=== PATIENT | female | born 1945 | race Caucasian/White ===

== ENCOUNTER 2023-06-17 13:02 | Outpatient (AMB) | payer MEDICARE, OTHER, SELFPAY ==
[2023-06-17 13:04] VITALS: BP 132/70; PULSE 90; O2SAT 97; BMI 25.7
--- NOTE | 2023-06-17 13:04 | A.OFFPC_ITS ---
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 Intake Note: Patient is a new patient here to establish care Director Shopper Marketing Required: No Allergies Penicillins Allergy (Mild, Verified 06/17/23 13:20) Swelling Medication List - Last Reconciled 06/17/23 by Len Villanueva MD amlodipine 7.5 mg PO .QD atorvastatin 20 mg PO DAILY hydrochlorothiazide 25 mg PO DAILY multivitamin 1 tab PO DAILY trazodone 100 mg PO BEDTIME PRN Tobacco use date assessed: 06/17/23 Fall risk assessment: No Falls in past year Last assessed Fall Risk: 06/17/23 Dental Screening Dental Screen Date: 06/17/23 Did you have a dental visit in the last 12 months?: Yes Did you have a dental problem in the last 6 months where you did not have access to dental care?: No Was dental information given to patient?: Patient has 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 fall in the bathtub 3 weeks ago R flank pain PFSH Surgical History (Updated 06/17/23 @ 13:37 by Len Villanueva MD) Hx of LASIK Carpal tunnel syndrome on both sides Social History (Updated 06/17/23 @ 13:38 by Len Villanueva MD) Housing: House Alcohol intake: current Comment: glass of wine once a day Patient Tobacco Use Status: Never used Tobacco service: No Current occupational status: retired Cognitive needs: No Hearing needs: No Vision needs: No Questionnaire PHQ-9 Over the last 2 weeks, how often have you been bothered by any of the following problems? 1. Little interest or pleasure in doing things: not at all 2. Feeling down, depressed, or hopeless: not at all 3. Trouble falling or staying asleep, or sleeping too much: not at all 4. Feeling tired or having little energy: not at all 5. Poor appetite or overeating: not at all 6. Feeling bad about yourself - or that you are a failure or have let yourself or your family down: not at all 7. Trouble concentrating on things, such as reading the newspaper or watching television: not at all 8. Moving or speaking so slowly that other people could have noticed. Or the opposite - being so fidgety or restless that you have been moving around a lot more than usual: not at all 9. Thoughts that you would be better off or of hurting yourself in some way: not at all Total score: 0 Depression Screening Interpretation: Negative Depression Screening Done: Yes [id number] - PHQ-9 Billing: Yes Source: Developed by Drs. Alfie Gillespie, Maureen Light, Jack Ayon and colleagues, with an educational kirby from [employer]. Thrive Questionnaire Date Thrive assessed: 06/17/23 I am a: Patient What is your living situation today?: I have a steady place to live Within the past 12 months, did the food you bought not last and you didn't have the money to get more?: Never true Within the past 12 months, did you worry whether your food would run out before you got money to buy more?: Never true Do you have trouble paying for medicines?: No Do you have trouble getting transportation to medical appointments?: No Do you have trouble paying your heating and electricity bill?: No Do you have trouble taking care of your child, family member or friend?: No Do you have trouble with day-to-day activities such as bathing, preparing meals, shopping, managing finances, etc.?: No Are you currently unemployed and looking for a job?: No Are you interested in more education?: No Please select the resources that you would like help with: None Currently or been in a relationship where the following occur: no concerns reported THRIVE Score: 0 AUDIT C Alcohol Use Questionnaire (AUDIT-C) 1. How often do you have a drink containing alcohol?: 4 or more times a week (wine ) 2. How many drinks containing alcohol do you have on a typical day when you are drinking?: 1 or 2 3. How often do you have six or more drinks on one occasion?: Never Total Score: 4 RESHMA-7 AMB Questionnaire RESHMA-7 Date RESHMA - 7 assessed: 06/17/23 Feeling nervous, anxious, or on edge: 0 = Not at all Not being able to stop or control worryin = Not at all Worrying too much about different things: 0 = Not at all Trouble relaxin = Not at all Being so restless that it is hard to sit still: 0 = Not at all Becoming easily annoyed or irritable: 0 = Not at all Feeling afraid as if something awful might happen: 0 = Not at all Total RESHMA-7 score (0-4 normal; 5-9 mild; 10-14 moderate; 15-21 severe): 0 Source: Developed by Drs. Alfie Gillespie, Maureen Light, Jack Ayon and colleagues, with an educational kirby from [employer]. RESHMA-7 Assessment Billing RESHMA-7 Assessment Tool: RESHMA-7 Assessment 66759 Physical exam (Primary Care) Vital Signs: Last Vital Signs Pulse 90 06/17/23 13:04 BP 132/70 06/17/23 13:04 Pulse Ox 97 06/17/23 13:04 Oxygen Delivery Method Room Air 06/17/23 13:04 BMI result Body Mass Index 25.7 Tobacco/Smoking Status: Tobacco use Status Tobacco use date assessed 06/17/23 06/17/23 13:07 Patient Tobacco Use Status Never used Tobacco 06/17/23 13:24 PHQ-9: PHQ-9 Score PHQ-9: Total score 0 06/17/23 13:25 Depression Screening Interpretation: Negative Thrive Assessment: Date of Thrive Assessment Date Thrive assessed 06/17/23 06/17/23 13:07 Currently or been in a relationship where the following occur: no concerns reported Const General: alert; No acute distress Eyes Conjunctivae: conjunctivae normal Resp Auscultation: clear to auscultation bilaterally Cardio Rate: regular rate Rhythm: regular rhythm GI Inspection: Yes normal to inspection Extrem General: Yes normal to inspection and No edema Assessment and Plan Assessment & Plan (1) Hypertension: Code(s): I10 - Essential (primary) hypertension Qualifiers: Hypertension type: primary hypertension Qualified Code(s): I10 - Essential (primary) hypertension Plan: Continue with blood pressure medication. Decrease salt intake and exercise presently on amlodipine and hydrochlorothiazide (2) Hypercholesterolemia: Code(s): E78.00 - Pure hypercholesterolemia, unspecified Plan: Avoid fried foods, chicken skin, eggs, butter margarine, pastries and meat. Be it pork or beef they have a lot of cholesterol LDL goal of less than 130 and triglyceride of less than 150. On atorvastatin 20 mg once a day (3) CKD stage 3a, GFR 45-59 ml/min: Code(s): N18.31 - Chronic kidney disease, stage 3a Plan: keep well hydrated avoid NSAID (4) Colon cancer screening: Code(s): Z12.11 - Encounter for screening for malignant neoplasm of colon Plan: cologuard requested (5) Colonoscopy refused: Code(s): Z53.20 - Procedure and treatment not carried out because of patient's decision for unspecified reasons (6) Breast cancer screening by mammogram: Code(s): Z12.31 - Encounter for screening mammogram for malignant neoplasm of breast Plan: had abnormal mammogram- will need to get results (7) Insomnia: Code(s): G47.00 - Insomnia, unspecified Orders: Orders Complete Blood Count Auto Diff Today I10 - Essential (primary) hypertension Comprehensive Met. Panel Today I10 - Essential (primary) hypertension Thyroid Stimulating Hormone Today I10 - Essential (primary) hypertension Free T4 (Free Thyroxine) Today I10 - Essential (primary) hypertension Vitamin B12 and Folate Today I10 - Essential (primary) hypertension Lipid Panel Today E78.00 - Pure hypercholesterolemia, unspecified, I10 - Essential (primary) hypertension UA CC w/rflx Micro + Cult Today I10 - Essential (primary) hypertension, R30.0 - Dysuria Vitamin D 25-OH Total Today I10 - Essential (primary) hypertension Referrals Cologuard Test Z12.11 - Encounter for screening for malignant neoplasm of colon Medications: New 2 amlodipine 7.5 mg (1.5 x 5 mg) PO .QD 90 days 135 tabs 1RF I10 - Essential (primary) hypertension atorvastatin 20 mg PO DAILY 90 tabs 2RF E78.00 - Pure hypercholesterolemia, unspecified hydrochlorothiazide 25 mg PO DAILY 90 tabs 2RF I10 - Essential (primary) hypertension trazodone 100 mg (2 x 50 mg) PO BEDTIME PRN 180 tabs 0RF insomnia G47.00 - Insomnia, unspecified Coding Level of Care Code New Pt Level 4 (45796) Diagnoses Primary hypertension I10 Hypertension type: primary hypertension Hypercholesterolemia E78.00 CKD stage 3a, GFR 45-59 ml/min N18.31 Colon cancer screening Z12.11 Colonoscopy refused Z53.20 Breast cancer screening by mammogram Z12.31 Insomnia G47.00 Additional Codes RESHMA-7 Assessment Billing - RESHMA-7 Assessment Tool: RESHMA-7 Assessment [id number] ([id number])
== END 2023-06-17 16:06 | disposition home or self-care (01) ==
PROVIDERS: PCP Internal Medicine; Visit Provider Internal Medicine
DX: I12.9 Hypertensive chronic kidney disease with stage 1 through stage 4 chronic kidney disease, or unspecified chronic kidney disease (principal); N18.31 Chronic kidney disease, stage 3a; E78.00 Pure hypercholesterolemia, unspecified; G47.00 Insomnia, unspecified
CPT/HCPCS: 99204

== ENCOUNTER 2023-12-07 13:20 | Outpatient (AMB) | payer MEDICARE, OTHER, SELFPAY ==
--- NOTE | 2023-12-07 13:27 | A.OFFVIS_ITS ---
Intake Vital Signs 12/07/23 13:29 Height 4 ft 9.95 in Weight 119 lb BMI 24.9 BP 130/66 Blood Pressure Location Lt brachial Position Sitting Pulse 92 Pulse Source Pulse Oximeter Pulse Oximetry (%) 96 Oxygen Delivery Method Room Air Intake Visit Reasons: AWV initial Intake Note: Patient is here for an Annual Wellness Visit. Complaint of dry cough for a while. Pt decline flu shot today. 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 Patient Services Representative: Patient Services Representative Present and Patient Services Representative offered & declined Accompanied by: Spouse Allergies Penicillins Allergy (Mild, Verified 12/07/23 13:29) Swelling Medication List - Last Reconciled 12/07/23 by Len Villanueva MD amlodipine 7.5 mg (1.5 x 5 mg) PO .QD 90 days atorvastatin 20 mg PO DAILY hydrochlorothiazide 25 mg PO DAILY multivitamin 1 tab PO DAILY trazodone 100 mg (2 x 50 mg) PO BEDTIME PRN HPI AWV initial HPI Details 78-year-old female with a history of chr onic kidney disease hypertension hypercholesterolemia last seen in May 2023. Patient was advised to follow-up mammogram. Patient is here for annual well visit. Patient has declined colonoscopy last bone density was 07/11/2021. fall last year compla ining of low back pain- and still has pain. no LOC. no ER visit. dry cough 2 months, [facility] Medical History (Updated 12/07/23 @ 14:42 by Len Villanueva MD) Colon cancer screening Surgical History Hx of LASIK Carpal tunnel syndrome on both sides Social History Housing: House Alcohol intake: current Comment: glass of wine once a day Patient Tobacco Use Status: Never used Tobacco service: No Current occupational status: retired Cognitive needs: No Hearing needs: No Vision needs: No Questionnaire Medicare Wellness Checkup [age] What gender do you identify with?: female During the past 4 weeks, how much have you been bothered by emotional problems such as feeling anxious, depressed, irritable, sad or downhearted, and blue?: moderately During the past 4 weeks, has your physical & emotional health limited your social activities with family, friends, neighbors, or groups?: not at all During the past 4 weeks, how much bodily pain have you generally had?: moderate pain During the past 4 weeks, was someone available to help you if you needed & wanted help?: yes, as much as I wanted During the past 4 weeks, what was the hardest physical activity you could do for at least 2 minutes?: moderate Can you get to places out of walking distance without help? (For eg., can you travel alone on buses, taxis or drive your car?): Yes Can you go shopping for groceries or clothes without someone's help?: Yes Can you prepare your own meals?: Yes Can you do your housework without help?: Yes Because of any health problems, do you need the help of another person with your personal care needs such as eating, bathing, dressing or getting around the house?: No Can you handle your own money without help?: Yes During the past 4 weeks, how would you rate your health in general?: good During the past 4 weeks how have things been going for you?: pretty well Are you having difficulties driving your car?: no Do you always fasten your seat belt when you are in a car?: yes, usually During past 4 weeks, have you been bothered by the following: never: Falling or dizzy when standing up, Sexual problems?, Trouble eating well?, Teeth or denture problems?, Problems using the telephone? and Tiredness or fatigue? Have you fallen 2 or more times in the past year?: No Are you afraid of falling?: No Are you a smoker?: no During the past 4 weeks, how many drinks of wine, beer, or other alcoholic beverages did you have?: 2-5 drinks per week Do you exercise for about 20 minutes 3 or more times a week?: yes, most of the time Have you been given information to help with the following?: no: Hazards in your house that might hurt you? and no: Keeping track of your medications? How often do you have trouble taking medicines the way you have been told to take them?: sometimes I take medicine as prescribed How confident are you that you can control & manage most of your health problems?: somewhat confident What is your race?: White PHQ-9 Over the last 2 weeks, how often have you been bothered by any of the following problems? 1. Little interest or pleasure in doing things: not at all 2. Feeling down, depressed, or hopeless: not at all 3. Trouble falling or staying asleep, or sleeping too much: nearly every day 4. Feeling tired or having little energy: not at all 5. Poor appetite or overeating: not at all 6. Feeling bad about yourself - or that you are a failure or have let yourself or your family down: not at all 7. Trouble concentrating on things, such as reading the newspaper or watching television: not at all 8. Moving or speaking so slowly that other people could have noticed. Or the opposite - being so fidgety or restless that you have been moving around a lot more than usual: not at all 9. Thoughts that you would be better off or of hurting yourself in some way: not at all Total score: 3 Depression Screening Interpretation: Positive Depression Screening Done: Yes Source: Developed by Drs. Alfie Gillespie, Maureen Light, Jack Ayon and colleagues, with an educational kirby from [employer]. Thrive Questionnaire Date Thrive assessed: 06/17/23 RESHMA-7 AMB Questionnaire RESHMA-7 Date RESHMA - 7 assessed: 06/17/23 Source: Developed by Drs. Alfie Gillespie, Maureen Light, Jack Ayon and colleagues, with an educational kirby from [employer]. AUDIT C Alcohol Use Questionnaire (AUDIT-C) 2. How many drinks containing alcohol do you have on a typical day when you are drinking?: 1 or 2 3. How often do you have six or more drinks on one occasion?: Daily or almost daily Total Score: 4 Review of Systems Const Denies poor appetite and Denies weakness Eyes Denies no additional complaints ENT Reports Normal hearing present, Denies dizziness, Denies nasal congestion, Denies tinnitus and Denies sore throat Card Denies chest pain, Denies syncope, Denies rapid heart rate and Denies dyspnea Resp Denies cough and Denies dyspnea GI Denies change in stool character, Reports constipation, Denies diarrhea, Denies nausea and Denies vomiting Denies urinary frequency, Denies difficulty voiding and Denies dysuria Neuro Reports Normal hearing present, Denies confusion, Denies dizziness, Denies syncope and Denies weakness Psych Denies confusion Physical Exam Vital Signs: Last Vital Signs Pulse 92 12/07/23 13:29 BP 130/66 12/07/23 13:29 Pulse Ox 96 12/07/23 13:29 Oxygen Delivery Method Room Air 12/07/23 13:29 BMI result Body Mass Index 24.9 Const General: No confusion Orientation/consciousness: No confusion HEENT Other: Bilateral impacted cerumen Head: Yes normocephalic Ears: external ears normal Face and sinus: Yes normal facial exam Mouth: moist mucous membranes Throat: Yes tonsils normal Eyes Conjunctivae: conjunctivae normal Pupils: Equal, round and reactive pupils present and Pupil accommodation reflex normal Direct Ophthalmoscopy: normal light reflex Neck Neck: No lymphadenopathy Thyroid: Thyroid normal Chest Chest palpation & inspection: normal inspection of the chest Resp Effort & Inspection: normal respiratory effort and no audible wheezes Auscultation: clear to auscultation bilaterally, no crackles, no wheezes and lung sounds not diminished Cardio Rate: regular rate Rhythm: regular rhythm Peripheral pulses: radial pulses present and dorsalis pedis present GI Palpation (GI): no masses Auscultation: normal bowel sounds and normoactive bowel sounds Rectal Exam - Female: deferred Skin General skin exam: no rashes or lesions noted Rashes: no rashes Neuro General: No confusion Cranial nerves: Yes Equal, round and reactive pupils present and Yes Normal hearing present Cognition (Neuro): normal cognition Gait exam (Neuro): Normal gait present Motor exam (neuro): 5/5 motor strength present throughout Deep tendon reflexes (DTR's): Right brachioradialis reflex intensity grade: 2+, Left brachioradialis reflex intensity grade: 2+, Right patellar reflex intensity grade: 2+ and Left patellar reflex intensity grade: 2+ Extrem General: No edema Assessment & Plan Assessment & Plan (1) Medicare annual wellness visit, initial: Code(s): Z00.00 - Encounter for general adult medical examination without abnormal findings Plan: Patient is advised to eat healthy, keep well hydrated, keep active and have adequate sleep. (2) Hypertension: Code(s): I10 - Essential (primary) hypertension Qualifiers: Hypertension type: primary hypertension Qualified Code(s): I10 - Essential (primary) hypertension Plan: Continue with blood pressure medication. Decrease salt intake and exercise patient on amlodipine 7.5 mg once a day and hydrochlorothiazide 25 mg once a day. (3) Hypercholesterolemia: Code(s): E78.00 - Pure hypercholesterolemia, unspecified Plan: Avoid fried foods, chicken skin, eggs, butter margarine, pastries and meat. Be it pork or beef they have a lot of cholesterol LDL goal of less than 130 and triglyceride of less than 150 on atorvastatin 20 mg once a day (4) CKD stage 3a, GFR 45-59 ml/min: Code(s): N18.31 - Chronic kidney disease, stage 3a Plan: Keep well hydrated, avoid NSAIDs. (5) Breast cancer screening by mammogram: Code(s): Z12.31 - Encounter for screening mammogram for malignant neoplasm of breast Plan: Patient is reminded about mammogram (6) Osteopenia: Code(s): M85.80 - Other specified disorders of bone density and structure, unspecified site Plan: bone density requested (7) Low back pain: Comment: fall 2022 Code(s): M54.50 - Low back pain, unspecified Plan: spine xray requested (8) Dry cough: Code(s): R05.8 - Other specified cough Plan: increase oral fluids due > 1 month advised chest xray - trial of claritin for 2 weeks and see (9) Impacted cerumen of both ears: Code(s): H61.23 - Impacted cerumen, bilateral Plan: Patient will call if wants to have ear irrigation Orders: Orders XR DEXA axial skeleton Today M81.0 - Age-related osteoporosis without current pathological fracture, M85.80 - Other specified disorders of bone density and structure, unspecified site XR chest 2V Today R05.8 - Other specified cough XR lumbar spine 2-3V Today M54.50 - Low back pain, unspecified XR thoracic spine 2V Today M54.50 - Low back pain, unspecified Medications: Refilled trazodone 100 mg (2 x 50 mg) PO BEDTIME PRN 180 tabs 0RF insomnia G47.00 - Insomnia, unspecified hydrochlorothiazide 25 mg PO DAILY 90 tabs 2RF I10 - Essential (primary) hypertension amlodipine 7.5 mg (1.5 x 5 mg) PO .QD 135 tabs 2RF 90 days I10 - Essential (primary) hypertension atorvastatin 20 mg PO DAILY 90 tabs 2RF E78.00 - Pure hypercholesterolemia, unspecified Quality Reporting (2019) Depression/Bipolar (159/160/161/177) PHQ-9: Total score: 3 Coding Level of Care Code Medicare Subsequent (G0439) Diagnoses Medicare annual wellness visit, initial Z00.00 Primary hypertension I10 Hypertension type: primary hypertension Hypercholesterolemia E78.00 CKD stage 3a, GFR 45-59 ml/min N18.31 Breast cancer screening by mammogram Z12.31 Osteopenia M85.80 Low back pain M54.50 Dry cough R05.8 Impacted cerumen of both ears H61.23
[2023-12-07 13:29] VITALS: BP 130/66; PULSE 92; O2SAT 96; BMI 24.9
== END 2023-12-07 14:40 | disposition home or self-care (01) ==
PROVIDERS: PCP Internal Medicine; Visit Provider Internal Medicine
DX: Z00.00 Encounter for general adult medical examination without abnormal findings (principal); I12.9 Hypertensive chronic kidney disease with stage 1 through stage 4 chronic kidney disease, or unspecified chronic kidney disease; N18.31 Chronic kidney disease, stage 3a; E78.00 Pure hypercholesterolemia, unspecified; Z12.31 Encounter for screening mammogram for malignant neoplasm of breast; M85.80 Other specified disorders of bone density and structure, unspecified site; M54.50 Low back pain, unspecified; R05.8 Other specified cough; H61.23 Impacted cerumen, bilateral

== ENCOUNTER → 2023-12-07 13:20 | Outpatient (BNVA) | payer MEDICARE, OTHER, SELFPAY | PROVIDERS: PCP Internal Medicine; Visit Provider Internal Medicine ==

== ENCOUNTER 2024-01-14 08:57 | Outpatient (REF) | payer MEDICARE, OTHER, SELFPAY ==
--- NOTE | ~2024-01-14 | MM_ITS ---
EXAMINATION: BONE DENSITOMETRY CLINICAL INDICATION: Age-related osteoporosis without current pathological fracture. COMPARISON: This is the patient's baseline examination. TECHNIQUE: Using a [employer] DXA System (software version: 13.1) manufactured by [employer], dual-energy x-ray absorptiometry was performed of the lumbar spine and left hip. The images are of good technical quality. Summary results are attached. FINDINGS: LEFT FEMUR, NECK: BMD 0.773 g/cm2, Z-score 0.3, T-score -1.9, osteopenia. LEFT FEMUR, TOTAL: BMD 0.885 g/cm2, Z-score 1.1, T-score -1.0, normal. AP SPINE L1-L4: BMD 0.984 g/cm2, Z-score 0.5, T-score -1.6, osteopenia. IDENTIFIED RISK FACTORS: Menopause, height loss, history of fracture (adult), recurrent falls, renal. HISTORY OF FRACTURE: Other. MEDICATIONS: Calcium. MM/XR DEXA axial skeleton IMPRESSION: 1. DIAGNOSIS: Osteopenia based on the lowest T-score value of -1.9 in the femoral neck applying World Health Organization criteria. 2. 10-YEAR FRACTURE RISK PREDICTION, FRAX: Major osteoporotic fracture (clinical spine, forearm, hip or shoulder) 19.7%. Hip fracture 4.8%. 3. Treatment Recommendations: NOF guidelines recommend consideration for treatment in postmenopausal women and men age 50 and older presenting with the following: -A hip or vertebral (clinical or morphometric) fracture. -T-score less than or equal to -2.5 at the femoral neck or spine after appropriate evaluation to exclude secondary causes. -Low bone mass at the hip or spine and a 10-year fracture probability by FRAX of greater than or equal to 3% for hip fracture or greater than or equal to 20% for major osteoporotic fracture based on the [place] adapted WHO algorithm. 4. Other Recommendations: All treatment decisions require clinical judgment and consideration of individual patient factors, including patient preferences, comorbidities, previous drug use, risk factors not captured in the FRAX model (e.g. frailty, falls, vitamin D deficiency, increased bone turnover, interval significant decline in bone density) and possible under or overestimation of fracture risk by FRAX. Additional medical evaluation for secondary cause of low bone mineral density may be appropriate. FUTURE SCAN RECOMMENDATION: People with diagnosed cases of osteoporosis or at high risk for fracture should have regular bone mineral density tests. For patients eligible for Medicare, routine testing is allowed once every 2 years. The testing frequency can be increased to one year for patients who have rapidly progressing disease, those who are receiving or discontinuing medical therapy to restore bone mass, or have additional risk factors. Electronically signed by: Kat Prieto MD 01/14/2024 11:31 AM [facility]
== END 2024-01-14 08:58 | disposition home or self-care (01) ==
LOC: HO.MAMMO 08:57
PROVIDERS: PCP Internal Medicine; Visit Provider Internal Medicine
DX: M81.0 Age-related osteoporosis without current pathological fracture (principal); M85.80 Other specified disorders of bone density and structure, unspecified site
CPT/HCPCS: 77080

== ENCOUNTER 2024-02-14 08:04 | Outpatient (REF) | payer MEDICARE, OTHER, SELFPAY | END 2024-02-14 08:05 | disposition home or self-care (01) | LOC: HO.MAMMO 08:04 | PROVIDERS: PCP Internal Medicine; Visit Provider Internal Medicine | DX: Z12.31 Encounter for screening mammogram for malignant neoplasm of breast (principal) | CPT/HCPCS: 77063; 77067 ==

== ENCOUNTER → 2024-02-14 08:30 | Outpatient (BNV) | payer MEDICARE, OTHER, SELFPAY | PROVIDERS: PCP Internal Medicine; Visit Provider Internal Medicine | DX: Z12.31 Encounter for screening mammogram for malignant neoplasm of breast (principal) | CPT/HCPCS: 77063; 77067 ==

== ENCOUNTER 2024-03-17 09:34 | Outpatient (AMB) | payer MEDICARE, OTHER, SELFPAY ==
--- NOTE | 2024-03-17 09:53 | AM.OFFWIN_ITS ---
Intake Vital Signs 03/17/24 09:58 Weight 54.885 kg BP 122/80 Blood Pressure Location Rt brachial Position Sitting Pulse 97 Pulse Source Pulse Oximeter Pulse Oximetry (%) 97 Oxygen Delivery Method Room Air Intake Visit Reasons: EP Torn ear lobe- LT Intake Note: Patient here for torn ear lobe after a fall yesterday. Patient Tobacco Use Status: Never used Tobacco Allergies Penicillins Allergy (Mild, Verified 03/17/24 09:58) Swelling Do you need a note to return to daycare/school/sports/work: No HPI HPI Comments History of Present Illness Details 78 year old female presents w/ lac to le ft earlobe. Patient reports yesteday she tripped in her room and hit her left ear against the wall sustaining a lact to the left ear. She has been putting vasaline on it. Tetanus shot unclear she thinks she has it ( records are at home) she would like to check and if she needs it she will get it with her PCP. L ear lobe is not bleeding. No loc, dizziness, visual changes, fall to the groun, cp, sob PE pinna w/ laceration that appears to be self healing and crusted over with a scab Gave patient options of glue vs sutures ( with risks of poor healing) however she states she would rather not have either of these if possible and allow it to conitnue self healing. Other option I have her is to go to [facility] ed for evaluation and possible plastics input she doesnt care about the aethetics she says and would prefer self healing Plan- dc w/ topical atbx ointment. PFSH Medical History Colon cancer screening Surgical History Hx of LASIK Carpal tunnel syndrome on both sides Social History Housing: House Alcohol intake: current Comment: glass of wine once a day Patient Tobacco Use Status: Never used Tobacco service: No Current occupational status: retired Cognitive needs: No Hearing needs: No Vision needs: No Review of Systems Const All systems reviewed & are unremarkable except as noted in HPI and below Physical Exam Vital Signs: Last Vital Signs Pulse 97 03/17/24 09:58 BP 122/80 03/17/24 09:58 Pulse Ox 97 03/17/24 09:58 Oxygen Delivery Method Room Air 03/17/24 09:58 vss Appearance: Alert.? Oriented X3.? No acute cardiopulmonary distress distress.? Head: Normocephalic, no step-offs or deformities. + left ear with a through and through pinna lac that appears to be self healing. Neck: Normal inspection.? Neck supple.? CVS: Pulses normal.? Respiratory: No respiratory distress.? Skin: ? Normal skin color. Extremities: 5/5 strength to bilateral upper and lower extremities Neuro: Oriented X 3.? No motor deficit.? No sensory deficit. Assessment & Plan Assessment & Plan (1) Laceration of left earlobe: Code(s): S01.312A - Laceration without foreign body of left ear, initial encounter Plan Take your medications as prescribed. If you were prescribed antibiotics today, it is important that you take your medication to their entirety, do not skip any doses, do not finish them early. Follow-up with your primary care provider this week. Return to the emergency department with new or worsening symptoms. In case of emergency call 911 Medications: New bacitracin zinc (Antibiotic (bacitracin zinc)) 1 appl topical Q8H 14 grams 0RF Coding Level of Care Code Est Pt Level 3 (55022) Diagnoses Laceration of left earlobe S01.312A
[2024-03-17 09:58] VITALS: BP 122/80; PULSE 97; O2SAT 97
== END 2024-03-17 10:29 | disposition home or self-care (01) ==
PROVIDERS: PCP Internal Medicine; Visit Provider Physician Assistant
DX: S01.312A Laceration without foreign body of left ear, initial encounter (principal)

== ENCOUNTER → 2024-03-17 09:34 | Outpatient (BNVA) | payer MEDICARE, OTHER, SELFPAY | PROVIDERS: PCP Internal Medicine; Visit Provider Physician Assistant | DX: S01.312A Laceration without foreign body of left ear, initial encounter (principal); W01.0XXA Fall on same level from slipping, tripping and stumbling without subsequent striking against object, initial encounter; Y93.9 Activity, unspecified; Y92.003 Bedroom of unspecified non-institutional (private) residence as the place of occurrence of the external cause; Y99.9 Unspecified external cause status | CPT/HCPCS: 99212 ==

== ENCOUNTER → 2024-03-23 10:30 | Outpatient (BNV) | payer MEDICARE, OTHER, SELFPAY | PROVIDERS: PCP Internal Medicine; Visit Provider Internal Medicine | DX: N63.11 Unspecified lump in the right breast, upper outer quadrant (principal); R92.331 Mammographic heterogeneous density, right breast | CPT/HCPCS: 76642; 77065; G0279 ==

== ENCOUNTER 2024-03-28 08:09 | Outpatient (AMB) | payer MEDICARE, OTHER, SELFPAY ==
[2024-03-28 08:50] VITALS: BP 138/68; PULSE 102; O2SAT 98; BMI 24.7
--- NOTE | 2024-03-28 08:50 | MHC.PC.OV ---
Vital Signs 03/28/24 08:50 Height 4 ft 9.95 in Weight 118 lb BMI 24.7 BP 138/68 Blood Pressure Location Lt brachial Position Sitting Pulse 102 H Pulse Source Pulse Oximeter Pulse Oximetry (%) 98 Oxygen Delivery Method Room Air Intake Visit Reasons: cholesterol Intake Note: A little anxious as went into the hospital yesterday. Allergies Penicillins Allergy (Mild, Verified 03/28/24 08:50) Swelling Tobacco use date assessed: 03/28/24 Fall risk assessment: No Falls in past year Last assessed Fall Risk: 03/28/24 Dental Screening Dental Screen Date: 03/28/24 Did you have a dental visit in the last 12 months?: Yes Did you have a dental problem in the last 6 months where you did not have access to dental care?: No Was dental information given to patient?: Patient has dentist HPI cholesterol HPI Details The patient is a 78-year-old female presenting with a follow-up concerning abnormal mammogram findings. The patient underwent a mammogram on March 23, which revealed a solid, irregular mass in the right breast, prompting a recommendation for histology with an ultrasound-guided biopsy. There is no indication that the biopsy had been scheduled prior to this visit. The patient is noted to have long-standing hypertension and hypercholesterolemia, both of which she manages with medication. Additionally, she has chronic kidney disease. There was discussion of a rash present on part of her skin, thought potentially to be related to anxiety. The patient reports no significant discomfort from the rash. [facility] Medical History Colon cancer screening Surgical History Hx of LASIK Carpal tunnel syndrome on both sides Social History Housing: House Alcohol intake: current Comment: glass of wine once a day Patient Tobacco Use Status: Never used Tobacco Tobacco use type: Cigarette e-Cigarette/Vaping Use: Never Used Second Hand Smoke Exposure: No service: No Current occupational status: retired Cognitive needs: No Hearing needs: No Vision needs: Yes Questionnaire PHQ-9 Over the last 2 weeks, how often have you been bothered by any of the following problems? 1. Little interest or pleasure in doing things: not at all 2. Feeling down, depressed, or hopeless: not at all 3. Trouble falling or staying asleep, or sleeping too much: nearly every day 4. Feeling tired or having little energy: not at all 5. Poor appetite or overeating: not at all 6. Feeling bad about yourself - or that you are a failure or have let yourself or your family down: not at all 7. Trouble concentrating on things, such as reading the newspaper or watching television: not at all 8. Moving or speaking so slowly that other people could have noticed. Or the opposite - being so fidgety or restless that you have been moving around a lot more than usual: not at all 9. Thoughts that you would be better off or of hurting yourself in some way: not at all Total score: 3 Depression Screening Interpretation: Positive Depression Screening Done: Yes Source: Developed by Drs. Alfie Gillespie, Maureen Light, Jack Ayon and colleagues, with an educational kirby from [employer]. Thrive Questionnaire Date Thrive assessed: 03/28/24 I am a: Patient What is your living situation today?: I have a steady place to live Within the past 12 months, did the food you bought not last and you didn't have the money to get more?: Never true Within the past 12 months, did you worry whether your food would run out before you got money to buy more?: Never true Do you have trouble paying for medicines?: No Do you have trouble getting transportation to medical appointments?: No Do you have trouble paying your heating and electricity bill?: No Do you have trouble taking care of your child, family member or friend?: No Do you have trouble with day-to-day activities such as bathing, preparing meals, shopping, managing finances, etc.?: No Are you currently unemployed and looking for a job?: No Are you interested in more education?: No Currently or been in a relationship where the following occur: No concerns reported THRIVE Score: 0 AUDIT C Alcohol Use Questionnaire (AUDIT-C) 2. How many drinks containing alcohol do you have on a typical day when you are drinking?: 1 or 2 3. How often do you have six or more drinks on one occasion?: Daily or almost daily Total Score: 4 RESHMA-7 AMB Questionnaire RESHMA-7 Date RESHMA - 7 assessed: 03/28/24 Feeling nervous, anxious, or on edge: 1 = Several days Not being able to stop or control worryin = Several days Worrying too much about different things: 1 = Several days Trouble relaxin = Several days Being so restless that it is hard to sit still: 0 = Not at all Becoming easily annoyed or irritable: 0 = Not at all Feeling afraid as if something awful might happen: 1 = Several days Total RESHMA-7 score (0-4 normal; 5-9 mild; 10-14 moderate; 15-21 severe): 5 Source: Developed by Drs. Alfie Gillespie, Maureen Light, Jack Ayon and colleagues, with an educational kirby from [employer]. Physical exam (Primary Care) Vital Signs: Last Vital Signs Pulse 102 H 03/28/24 08:50 BP 138/68 03/28/24 08:50 Pulse Ox 98 03/28/24 08:50 Oxygen Delivery Method Room Air 03/28/24 08:50 BMI result Body Mass Index 24.7 Tobacco/Smoking Status: Tobacco use Status Tobacco use date assessed 03/28/24 03/28/24 08:56 Patient Tobacco Use Status Never used Tobacco 03/28/24 08:56 Tobacco use type Cigarette 03/28/24 08:56 e-Cigarette/Vaping Use Never Used 03/28/24 08:56 PHQ-9: PHQ-9 Score PHQ-9: Total score 3 03/28/24 08:56 Depression Screening Interpretation: Positive Thrive Assessment: Date of Thrive Assessment Date Thrive assessed 03/28/24 03/28/24 08:56 Currently or been in a relationship where the following occur: No concerns reported Const General: alert; No acute distress Eyes Conjunctivae: conjunctivae normal Resp Auscultation: clear to auscultation bilaterally Cardio Rate: regular rate Rhythm: regular rhythm GI Inspection: Yes normal to inspection Extrem General: Yes normal to inspection and No edema Coding Level of Care Code Est Pt Level 4 (29381) Complex EM visit Add On G2211 Diagnoses Breast asymmetry N64.89 Primary hypertension I10 Hypertension type: primary hypertension Hypercholesterolemia E78.00 CKD stage 3a, GFR 45-59 ml/min N18.31 Assessment & Plan Assessment & Plan (1) Breast asymmetry: Comment: Right 2022 Code(s): N64.89 - Other specified disorders of breast Category: Medical Plan: US guided needle biopsy advised (2) Hypertension: Code(s): I10 - Essential (primary) hypertension Category: Medical Qualifiers: Hypertension type: primary hypertension Qualified Code(s): I10 - Essential (primary) hypertension Plan: lab work not done yet (3) Hypercholesterolemia: Code(s): E78.00 - Pure hypercholesterolemia, unspecified Category: Medical Plan: lab work not done yet (4) CKD stage 3a, GFR 45-59 ml/min: Code(s): N18.31 - Chronic kidney disease, stage 3a Category: Medical Plan - For the abnormal mammogram findings, an urgent referral for an ultrasound-guided biopsy of the right breast mass was made to ascertain further histological diagnosis. - Continue current medication regimen for hypertension and hypercholesterolemia, ensuring adequate supply at the patient's pharmacy. - Discussed proper skin moisture management for the rash, including the recommendation to use thick lotions such as Aquaphor or CeraVe to prevent scratching. - Encourage routine preventative care; emphasized the importance of completing pending blood work with fasting for comprehensive assessment. - Advised on seasonal respiratory precautions, including potential use of masks during heightened flu and RSV activity periods, along with typical COVID-19 protective measures. Orders: Orders US breast ndl core biopsy RT Today N64.89 - Other specified disorders of breast
== END 2024-03-28 09:35 | disposition home or self-care (01) ==
PROVIDERS: PCP Internal Medicine; Visit Provider Internal Medicine
DX: N64.89 Other specified disorders of breast (principal); I10 Essential (primary) hypertension; E78.00 Pure hypercholesterolemia, unspecified; N18.31 Chronic kidney disease, stage 3a

== ENCOUNTER → 2024-03-28 08:09 | Outpatient (BNVA) | payer MEDICARE, OTHER, SELFPAY | PROVIDERS: PCP Internal Medicine; Visit Provider Internal Medicine | DX: N64.89 Other specified disorders of breast (principal); E78.00 Pure hypercholesterolemia, unspecified; I12.9 Hypertensive chronic kidney disease with stage 1 through stage 4 chronic kidney disease, or unspecified chronic kidney disease; N18.31 Chronic kidney disease, stage 3a | CPT/HCPCS: 99212 ==

== ENCOUNTER 2024-05-12 09:40 | Outpatient (AMB) | payer MEDICARE, OTHER, SELFPAY ==
--- NOTE | 2024-05-12 09:55 | MHC.OFFVIS ---
Vital Signs 05/12/24 10:04 Height 4 ft 9 in Weight 119 lb BMI 25.7 BP 178/83 H Blood Pressure Location Lt brachial Position Sitting Pulse 116 H Intake Visit Reasons: US guided BX (R) breast 9 o'clock mass Intake Note: Patient is seen in office for ultrasound biopsy CONSULT right breast 9 o'clock mass. Pt c/o: denies feeling any lump or concerns, no prior breast surgeries, infections, no fm hx of breast cancer, one child, no to breast feeding 05/17/24 School Based Therapist Required: No Registered Vascular Technologist (Rvt): Registered Vascular Technologist (Rvt) Present Accompanied by: Self / Same As Patient Allergies Penicillins Allergy (Mild, Verified 05/12/24 10:02) Swelling Medication List - Last Reconciled 05/12/24 by Guilherme Baugh MD amlodipine 7.5 mg (1.5 x 5 mg) PO .QD 90 days atorvastatin 20 mg PO DAILY bacitracin zinc (Antibiotic (bacitracin zinc)) 1 appl topical Q8H hydrochlorothiazide 25 mg PO DAILY multivitamin 1 tab PO DAILY trazodone 100 mg (2 x 50 mg) PO BEDTIME PRN HPI Comments Details: 78-year-old female patient presenting with a recent screening mammogram performed on 02/14/2024 with additional images obtained on 03/23/2024 including an ultrasound of the right breast which revealed a solid irregular mass in the right breast at the 9 o'clock position, 10 cm from the nipple measuring 2 x 3 x 3 mm. This was felt to be suspicious for malignancy (BI-RADS 4) and ultrasound-guided core biopsy recommended. She was scheduled for this biopsy at the [facility] on 05/17/2024. She denies a history of breast problems or breast surgery. She denies any current breast symptoms. Her family history is negative for breast or ovarian cancer. She is 1 para 1 and was 21 years old when she had her 1st child. Menarche was at the age of 13. She went through menopause in her late 50s. [facility] Medical History Colon cancer screening Surgical History Hx of LASIK Carpal tunnel syndrome on both sides Social History Housing: House Alcohol intake: current Comment: glass of wine once a day Patient Tobacco Use Status: Never used Tobacco Tobacco use type: Cigarette e-Cigarette/Vaping Use: Never Used Second Hand Smoke Exposure: No service: No Current occupational status: retired Cognitive needs: No Hearing needs: No Vision needs: Yes Female Reproductive History Menstrual Age of Menarche: 13 Age of menopause: 52 Total pregnancies: 1 Number of Living Children: 1 Review of Systems Const All systems reviewed & are unremarkable except as noted in HPI and below Denies chills, Denies fever(s), Denies headache(s), Denies poor appetite and Denies weakness ENT Denies headache(s) Card Denies chest pain, Denies irregular heart rhythm, Denies palpitations and Denies dyspnea Resp Denies cough, Denies excessive phlegm production and Denies dyspnea GI Denies abdominal pain, Denies bloating, Denies change in bowel habits, Denies constipation, Denies heartburn, Denies diarrhea, Denies nausea and Denies vomiting Denies urinary frequency Musc Denies back pain, Denies muscle weakness and Denies numbness Skin/Breast Denies changing lesions and Denies unusual bruising Neuro Denies headache(s), Denies numbness, Denies paresthesias and Denies weakness Psych Denies anxiety and Denies depression Endo Denies palpitations [place]/Lymph Denies lymphadenopathy Physical Exam Const General: cooperative and no acute distress Nutritional Appearance: well nourished Orientation/consciousness: patient oriented x3 Limitations: no limitations HEENT Head: Yes normocephalic and Yes atraumatic Ears: hearing grossly normal bilaterally Chest Other: Left breast: No skin change, no nipple retraction, no nipple discharge, no palpable mass, no enlarged lymph nodes. Right breast: No skin change, no nipple retraction, no nipple discharge, no palpable mass, no enlarged lymph nodes Resp Effort & Inspection: normal respiratory effort, no audible wheezes, no cough and no respiratory distress Cardio Jugular venous distension: no JVD GI Inspection: Yes normal to inspection Skin Other: Warm, dry, no rash Neuro General: patient oriented x3 Extrem General: Yes no clubbing, cyanosis or edema Results Reviewed Results Reviewed: Assessment & Plan Assessment & Plan (1) Abnormal mammogram: Code(s): R92.8 - Other abnormal and inconclusive findings on diagnostic imaging of breast Category: Medical (2) Abnormal ultrasound of breast: Code(s): R92.8 - Other abnormal and inconclusive findings on diagnostic imaging of breast Category: Medical Plan 78-year-old female patient presenting for evaluation of a abnormal mammogram and ultrasound of the right breast 09:00 o'clock, 10 cm from the nipple with a irregularly shaped density felt to be suspicious for malignancy. She was scheduled for an ultrasound-guided core biopsy at the [facility] on 05/17/2024. I reviewed the ultrasound findings with the patient. Examination today revealed no suspicious findings in either breast. I recommended she return approximately 1 week after the biopsy to review the pathology results and discuss treatment options. She expressed understanding and agrees with the plan. Orders: Orders US breast ndl core biopsy RT Today R92.8 - Other abnormal and inconclusive findings on diagnostic imaging of breast Coding Level of Care Code New Pt Level 4 (34258) Diagnoses Abnormal mammogram R92.8 Abnormal ultrasound of breast R92.8
[2024-05-12 10:04] VITALS: BP 178/83; PULSE 116; BMI 25.7
== END 2024-05-12 10:15 | disposition home or self-care (01) ==
LOC: HO.HGS 09:40
PROVIDERS: PCP Internal Medicine; Visit Provider Surgery
DX: R92.8 Other abnormal and inconclusive findings on diagnostic imaging of breast (principal)
CPT/HCPCS: 99204

== ENCOUNTER → 2024-05-12 09:40 | Outpatient (BNVA) | payer MEDICARE, OTHER, SELFPAY | PROVIDERS: PCP Internal Medicine; Visit Provider Surgery | DX: R92.8 Other abnormal and inconclusive findings on diagnostic imaging of breast (principal) | CPT/HCPCS: 99202 ==

== ENCOUNTER 2024-05-17 07:53 | Outpatient (REF) | payer MEDICARE, OTHER, SELFPAY ==
--- NOTE | ~2024-05-17 | MM_ITS ---
PROCEDURE: ULTRASOUND-GUIDED RIGHT BREAST BIOPSY CLINICAL INFORMATION: Mass at 9:00 10 cm from the nipple with distortion on mammography. COMPARISON: [facility] on PACS. TECHNIQUE: The details of the procedure, as well as the risks, benefits, and alternatives to the procedure were explained to the patient in detail and all of her questions were answered, after which, written informed consent was obtained. PROCEDURE: Prior to the procedure, sonography revealed a solid irregular mass at 9:00 10 cm from the nipple. A time-out was performed, the lesion intended for biopsy was targeted and the skin of the right breast was then prepped and draped in the usual sterile fashion. Using sonographic guidance, sterile technique, and 1% lidocaine without epinephrine for local anesthesia, a total of 7 cores were obtained through the targeted area with a 14-gauge biopsy device. At the completion of tissue sampling, a single butterfly metallic clip was deposited at the biopsy site. An appropriate sample was obtained. The postprocedure 2-view direct digital mammogram reveals satisfactory positioning of the biopsy clip. The patient tolerated the procedure well and, after assuring adequate hemostasis, was discharged in good condition after reviewing postbiopsy breast care instructions. Final pathology results are pending. MM/MM tomosynthesis diagnostic RT IMPRESSION: 1. Uncomplicated sonographically-guided core biopsy of the right breast. The 2-view direct digital postprocedure mammogram reveals satisfactory positioning of the biopsy clip. 2. Final pathology results are pending. A separate report with final recommendations will be issued once these results are made available. Electronically signed by: Iliana Hardy DO 05/17/2024 10:50 AM EDT
[2024-05-17] MEDS: Sodium Bicarbonate 8.4% 50 MEQ/50 ML VIAL SUBCUT (09:01)
[2024-05-17] MEDS: Lidocaine HCl 1 % 20 ML VIAL 14 ML SUBCUT (09:03)
== END 2024-05-17 07:54 | disposition home or self-care (01) ==
LOC: HO.MAMMO 07:53
PROVIDERS: Pathology Cytopathology; PCP Internal Medicine; Visit Provider Surgery
DX: C50.811 Malignant neoplasm of overlapping sites of right female breast (principal); Z17.0 Estrogen receptor positive status [ER+]
CPT/HCPCS: 19083; 77061; 77065; 88305; 88341; 88342; 88360; 88374; A4648; J2003

== ENCOUNTER → 2024-05-17 08:00 | Outpatient (BNV) | payer MEDICARE, OTHER, SELFPAY | PROVIDERS: PCP Internal Medicine; Visit Provider Internal Medicine | DX: N63.15 Unspecified lump in the right breast, overlapping quadrants (principal) | CPT/HCPCS: 19083; 77065 ==

== ENCOUNTER 2024-05-22 08:59 | Outpatient (AMB) | payer MEDICARE, OTHER, SELFPAY ==
[2024-05-22 09:00] VITALS: BP 132/64; PULSE 113; TEMP 36.2; O2SAT 98; BMI 26.0
--- NOTE | 2024-05-22 09:00 | A.OFFPC_ITS ---
Vital Signs 05/22/24 09:00 Height 4 ft 9 in Weight 120 lb 4 oz BMI 26.0 BP 132/64 Blood Pressure Location Lt brachial Position Sitting Pulse 113 H Pulse Source Pulse Oximeter Temp 97.1 F Temp Source Temporal Artery Scan Pulse Oximetry (%) 98 Oxygen Delivery Method Room Air Intake Visit Reasons: Right breast cancer FU Allergies Penicillins Allergy (Mild, Verified 05/22/24 09:04) Swelling Tobacco use date assessed: 05/22/24 Fall risk assessment: No Falls in past year Last assessed Fall Risk: 03/28/24 Dental Screening Dental Screen Date: 03/28/24 Did you have a dental visit in the last 12 months?: Yes Did you have a dental problem in the last 6 months where you did not have access to dental care?: No Was dental information given to patient?: Patient has dentist [facility] Medical History Breast asymmetry Abnormal ultrasound of breast Abnormal mammogram Colon cancer screening Surgical History Hx of LASIK Carpal tunnel syndrome on both sides Social History Housing: House Alcohol intake: current Comment: glass of wine once a day Patient Tobacco Use Status: Never used Tobacco e-Cigarette/Vaping Use: Never Used Second Hand Smoke Exposure: No service: No Current occupational status: retired Cognitive needs: No Hearing needs: No Vision needs: Yes Female Reproductive History Menstrual Age of Menarche: 13 Questionnaire PHQ-9 Over the last 2 weeks, how often have you been bothered by any of the following problems? 1. Little interest or pleasure in doing things: not at all 2. Feeling down, depressed, or hopeless: not at all 3. Trouble falling or staying asleep, or sleeping too much: nearly every day 4. Feeling tired or having little energy: not at all 5. Poor appetite or overeating: not at all 6. Feeling bad about yourself - or that you are a failure or have let yourself or your family down: not at all 7. Trouble concentrating on things, such as reading the newspaper or watching television: not at all 8. Moving or speaking so slowly that other people could have noticed. Or the opposite - being so fidgety or restless that you have been moving around a lot more than usual: not at all 9. Thoughts that you would be better off or of hurting yourself in some way: not at all Total score: 3 Depression Screening Interpretation: Positive Depression Screening Done: Yes Source: Developed by Drs. Alfie Gillespie, Maureen Light, Jack Ayon and colleagues, with an educational kirby from [employer]. Thrive Questionnaire Date Thrive assessed: 03/28/24 I am a: Patient What is your living situation today?: I have a steady place to live Within the past 12 months, did the food you bought not last and you didn't have the money to get more?: Never true Within the past 12 months, did you worry whether your food would run out before you got money to buy more?: Never true Do you have trouble paying for medicines?: No Do you have trouble getting transportation to medical appointments?: No Do you have trouble paying your heating and electricity bill?: No Do you have trouble taking care of your child, family member or friend?: No Do you have trouble with day-to-day activities such as bathing, preparing meals, shopping, managing finances, etc.?: No Are you currently unemployed and looking for a job?: No Are you interested in more education?: No Currently or been in a relationship where the following occur: No concerns reported THRIVE Score: 0 AUDIT C Alcohol Use Questionnaire (AUDIT-C) 2. How many drinks containing alcohol do you have on a typical day when you are drinking?: 1 or 2 3. How often do you have six or more drinks on one occasion?: Daily or almost daily Total Score: 4 RESHMA-7 AMB Questionnaire RESHMA-7 Date RESHMA - 7 assessed: 03/28/24 Feeling nervous, anxious, or on edge: 1 = Several days Not being able to stop or control worryin = Several days Worrying too much about different things: 1 = Several days Trouble relaxin = Several days Being so restless that it is hard to sit still: 0 = Not at all Becoming easily annoyed or irritable: 0 = Not at all Feeling afraid as if something awful might happen: 1 = Several days Total RESHMA-7 score (0-4 normal; 5-9 mild; 10-14 moderate; 15-21 severe): 5 Source: Developed by Drs. Alfie Gillespie, Maureen Light, Jack Ayon and colleagues, with an educational kirby from [employer]. Physical exam (Primary Care) Vital Signs: Last Vital Signs Temp 97.1 F 05/22/24 09:00 Pulse 113 H 05/22/24 09:00 BP 132/64 05/22/24 09:00 Pulse Ox 98 05/22/24 09:00 Oxygen Delivery Method Room Air 05/22/24 09:00 BMI result Body Mass Index 26.0 Tobacco/Smoking Status: Tobacco use Status Tobacco use date assessed 05/22/24 05/22/24 09:05 Patient Tobacco Use Status Never used Tobacco 05/22/24 09:05 Tobacco use type 05/22/24 09:05 e-Cigarette/Vaping Use Never Used 05/22/24 09:05 PHQ-9: PHQ-9 Score PHQ-9: Total score 3 05/22/24 09:05 Depression Screening Interpretation: Positive Thrive Assessment: Date of Thrive Assessment Date Thrive assessed 03/28/24 05/22/24 09:05 Currently or been in a relationship where the following occur: No concerns reported Const General: alert; No acute distress Eyes Conjunctivae: conjunctivae normal Resp Auscultation: clear to auscultation bilaterally Cardio Rate: regular rate Rhythm: regular rhythm GI Inspection: Yes normal to inspection Extrem General: Yes normal to inspection and No edema Coding Level of Care Code Est Pt Level 3 (48322) Diagnoses Breast cancer, right breast C50.911 Assessment & Plan Assessment & Plan (1) Breast cancer, right breast: Comment: April 2024Invasive ductal carcinoma, MSBR grade 1, with cribriform features Code(s): C50.911 - Malignant neoplasm of unspecified site of right female breast Category: Medical Plan History of Present Illness The patient is a 78-year-old female presenting with concerns related to a recent diagnosis of right breast cancer. She has underlying chronic conditions, including hypertension, hypercholesterolemia, and chronic kidney disease. A biopsy was performed, establishing the presence of invasive ductal carcinoma, grade 1, situated in the right breast with no signs of metastasis at this point. There will be a surgical consultation to evaluate . Coordination with hematology and oncology is underway to further assess the nature of the cancer and plan for chemotherapy based on additional tests. The patient is managing the diagnosis situation well but expresses concern about possible pain from procedures. Health Maintenance - Blood work including fasting labs requested but remains incomplete. - Follow-up with surgeon scheduled for further evaluation and treatment planning for breast cancer. - Oncology and hematology referrals initiated for comprehensive cancer management. Social History Review of Systems Physical Exam Results - Tests and Diagnostics: Ultrasound-guided biopsy showing invasive ductal carcinoma, grade 1, of the right breast. Plan Addressing the newly diagnosed invasive ductal carcinoma of the right breast is the primary focus. An appointment with a breast surgeon has been secured to evaluate . The outcome depends on additional tumor assessments. Referral to hematology and oncology is underway to determine the best course of treatment, including potential chemotherapy based on receptor assessments. The coordination of care pathways is neely to ensure timely treatment, with follow-up care integrated to manage her chronic illnesses alongside cancer treatment. Patient was informed and verbally consented to the use of an ambient scribe for clinic note documentation during this visit. Discussion Notes I discussed with the patient the diagnosis of invasive ductal carcinoma grade 1 in the right breast, options being considered and will be further examined during her upcoming surgical consultation. Alternatives, risks, and potential outcomes were briefly outlined. Referrals were made to hematology and oncology to conduct additional receptor testing which will guide chemotherapy decisions. The patient voiced concerns about pain and expressed a desire for quick scheduling, which I ensured by marking her referral as urgent. We also discussed the correlation between her current chronic conditions and cancer treatment planning to ensure holistic care. Patient Instructions - Attend the scheduled appointment with the surgeon for consultation . - Complete the fasting blood work as soon as possible. - Prepare for additional testing and follow-up with hematology and oncology for further cancer evaluation and planning. - Maintain current medication regimen for hypertension, hypercholesterolemia, and chronic kidney disease as directed. - Monitor for any new symptoms or changes and report them immediately. Orders: Referrals Hematology & Oncology Referral C50.911 - Malignant neoplasm of unspecified site of right female breast
== END 2024-05-22 09:18 | disposition home or self-care (01) ==
LOC: HO.HMCH 08:59
PROVIDERS: PCP Internal Medicine; Visit Provider Internal Medicine
DX: C50.911 Malignant neoplasm of unspecified site of right female breast (principal)

== ENCOUNTER → 2024-05-22 08:59 | Outpatient (BNVA) | payer MEDICARE, OTHER, SELFPAY | PROVIDERS: PCP Internal Medicine; Visit Provider Internal Medicine | DX: C50.911 Malignant neoplasm of unspecified site of right female breast (principal); E78.00 Pure hypercholesterolemia, unspecified; I12.9 Hypertensive chronic kidney disease with stage 1 through stage 4 chronic kidney disease, or unspecified chronic kidney disease; N18.9 Chronic kidney disease, unspecified | CPT/HCPCS: 99212 ==

== ENCOUNTER 2024-05-22 09:23 | Outpatient (REF) | payer MEDICARE, OTHER, SELFPAY ==
[2024-05-22 11:02] LABS: MANUAL DIFF FLAG NO
[2024-05-22 11:17] LABS: Basophils Percent Auto 0.3 % (0-2); Eosinophils Percent Auto 0.4 % (0-4); Hematocrit 40.8 % (37.0-47.0); Hemoglobin 14.3 g/dl (12.0-16.0); Imm Gran Abs Auto 0.02 X10*3/uL (0.00-0.03); Imm Gran Pct Auto 0.2 % (0.0-0.4); Lymphocytes Absolute Auto 1.3 X10*3/uL (1.2-4.9); Lymphocytes Percent Auto 14.1 % (20-40); Mean Corpuscular Hemoglobin 32.3 pg (27.0-33.0); Mean Corpuscular Volume 92.1 fL (80.0-98.0); Mean Platelet Volume 10.6 fL (9.4-12.3); Monocytes Absolute Auto 0.6 X10*3/uL (0.1-1.2); Monocytes Percent Auto 6.5 % (2-11); Neutrophils Absolute Auto 7.3 x10*3/uL (2.0-8.3); Neutrophils Percent Auto 78.5 % (45-73); Platelet Count 204 X10*3/uL (160-400); Red Blood Count 4.43 X10*6/uL (4.20-5.50); Red Cell Distribution Width 11.7 % (11.0-16.0); White Blood Count 9.4 X10*3/uL (4.8-10.8)
[2024-05-22 11:45] LABS: Alanine Aminotransferase 31 U/L (0-31); Albumin Level 4.9 g/dL (3.5-5.0); Alkaline Phosphatase 70 U/L (39-117); Anion Gap 17 (12-20); Aspartate Amino Transferase 35 U/L (5-31); Bilirubin Total 0.9 mg/dL (0.0-1.0); Blood Urea Nitrogen 10 mg/dL (9-16); Calcium 9.5 mg/dL (8.4-10.2); Carbon Dioxide 25 mmol/L (22-29); Chloride 101 mmol/L (96-108); Cholesterol 239 mg/dL (<200); Estimated Glomerular Filt Rate 49; Glucose Random 137 mg/dL (60-115); HDL Cholesterol 86 mg/dL (>40); LDL Cholesterol Calculated 123 mg/dL (<100); Potassium 3.2 mmol/L (3.3-5.1); Sodium 140 mmol/L (135-145); Total Protein 8.1 g/dL (6.5-8.0); Triglycerides 152 mg/dL (<150)
[2024-05-22 11:47] LABS: Free T4 (Free Thyroxine) 1.16 ng/dL (0.71-1.85); Thyroid Stimulating Hormone 0.71 uIU/mL (0.32-4.0); Vitamin D 25-OH Total 52.1 ng/mL (>30)
[2024-05-22 11:59] LABS: Folate 13.8 ng/mL (> or = 4.0); Vitamin B12 344 pg/mL (200-900)
== END 2024-05-22 09:24 | disposition home or self-care (01) ==
LOC: HO.10HDL 09:23
PROVIDERS: Visit Provider Internal Medicine
DX: C50.911 Malignant neoplasm of unspecified site of right female breast (principal); E78.00 Pure hypercholesterolemia, unspecified; I12.9 Hypertensive chronic kidney disease with stage 1 through stage 4 chronic kidney disease, or unspecified chronic kidney disease; N18.9 Chronic kidney disease, unspecified
CPT/HCPCS: 36415; 80053; 80061; 82306; 82607; 82746; 84439; 84443; 85025; 96127; 99212

== ENCOUNTER 2024-05-23 10:09 | Outpatient (AMB) | payer MEDICARE, OTHER, SELFPAY ==
--- NOTE | 2024-05-23 10:23 | MHC.OFFVIS ---
Vital Signs 05/23/24 10:35 Height 4 ft 9 in Weight 119 lb 0.794 oz BMI 25.8 Intake Visit Reasons: US guided BX (R) breast 9 o'clock mass RESULTS Intake Note: Patient is seen in office for ultrasound biopsy RESULTS right breast 9 o'clock mass. Pt c/o: here to discuss next steps, already seen results Hog Scraper Required: No Accompanied by: Spouse Allergies Penicillins Allergy (Mild, Verified 05/23/24 10:35) Swelling Medication List - Last Reconciled 05/23/24 by Guilherme Baugh MD amlodipine 7.5 mg (1.5 x 5 mg) PO .QD 90 days atorvastatin 20 mg PO DAILY bacitracin zinc (Antibiotic (bacitracin zinc)) 1 appl topical Q8H hydrochlorothiazide 25 mg PO DAILY multivitamin 1 tab PO DAILY potassium chloride ER (Klor-Con M) 10 mEq orally BID x 3 days then once a day; 30 days trazodone 100 mg (2 x 50 mg) PO BEDTIME PRN HPI Comments Details: 78-year-old female patient presenting with a screening mammogram performed on 02/14/2024 with additional images obtained on 03/23/2024 including an ultrasound of the right breast which revealed a solid irregular mass in the right breast at the 9 o'clock position, 10 cm from the nipple measuring 2 x 3 x 3 mm. This was felt to be suspicious for malignancy (BI-RADS 4) and ultrasound-guided core biopsy recommended. She underwent this procedure at the [facility] on 05/17/2024. She denies a history of breast problems or breast surgery. She denies any current breast symptoms. Her family history is negative for breast or ovarian cancer. She is 1 para 1 and was 21 years old when she had her 1st child. Menarche was at the age of 13. She went through menopause in her late 50s. She returns today to review the pathology results of the ultrasound-guided core biopsy. Pathology revealed an invasive ductal carcinoma, grade 1, ER/GA positive, HER2 Justin negative, Ki-67 low. She tolerated the procedure well and denies any ongoing symptoms. [facility] Medical History Breast asymmetry Abnormal ultrasound of breast Abnormal mammogram Colon cancer screening Surgical History Hx of LASIK Carpal tunnel syndrome on both sides Social History Housing: House Alcohol intake: current Comment: glass of wine once a day Patient Tobacco Use Status: Never used Tobacco e-Cigarette/Vaping Use: Never Used Second Hand Smoke Exposure: No service: No Current occupational status: retired Cognitive needs: No Hearing needs: No Vision needs: Yes Female Reproductive History Menstrual Age of Menarche: 13 Review of Systems Const All systems reviewed & are unremarkable except as noted in HPI and below Denies chills, Denies fever(s), Denies headache(s), Denies poor appetite and Denies weakness ENT Denies headache(s) Card Denies chest pain, Denies irregular heart rhythm, Denies palpitations and Denies dyspnea Resp Denies cough, Denies excessive phlegm production and Denies dyspnea GI Denies abdominal pain, Denies bloating, Denies change in bowel habits, Denies constipation, Denies heartburn, Denies diarrhea, Denies nausea and Denies vomiting Denies urinary frequency Musc Denies back pain, Denies muscle weakness and Denies numbness Skin/Breast Denies changing lesions and Denies unusual bruising Neuro Denies headache(s), Denies numbness, Denies paresthesias and Denies weakness Psych Denies anxiety and Denies depression Endo Denies palpitations [place]/Lymph Denies lymphadenopathy Physical Exam Vital Signs: BMI result Body Mass Index 25.8 Const General: cooperative and no acute distress Nutritional Appearance: well nourished Orientation/consciousness: patient oriented x3 Limitations: no limitations HEENT Head: Yes normocephalic and Yes atraumatic Ears: hearing grossly normal bilaterally Chest Other: From previous exam: Left breast: No skin change, no nipple retraction, no nipple discharge, no palpable mass, no enlarged lymph nodes. Right breast: No skin change, no nipple retraction, no nipple discharge, no palpable mass, no enlarged lymph nodes Resp Effort & Inspection: normal respiratory effort, no audible wheezes, no cough and no respiratory distress Cardio Jugular venous distension: no JVD GI Inspection: Yes normal to inspection Skin Other: Warm, dry, no rash Neuro General: patient oriented x3 Extrem General: Yes no clubbing, cyanosis or edema Assessment & Plan Assessment & Plan (1) Breast cancer, right breast: Comment: April 2024Invasive ductal carcinoma, MSBR grade 1, with cribriform features Code(s): C50.911 - Malignant neoplasm of unspecified site of right female breast Category: Medical Qualifiers: Breast location: upper outer quadrant of breast Estrogen receptor status: positive Patient sex: female Qualified Code(s): C50.411 - Malignant neoplasm of upper-outer quadrant of right female breast; Z17.0 - Estrogen receptor positive status [ER+] Plan 78-year-old female patient presenting with an abnormal density on mammogram and ultrasound felt to be suspicious for malignancy. Subsequent ultrasound-guided core biopsy performed on 05/17/2024 at the [facility] revealed an invasive ductal carcinoma, grade 1, ER/GA positive, HER2 Justin negative, Ki-67 low. I reviewed the pathology results in detail with the patient and her and discuss treatment options. By ultrasound the lesion appears small, less than 1 cm and should be amenable to lumpectomy with sentinel node biopsy. After discussion of the procedure, risks, and alternatives, she consents to a right breast lumpectomy with localizer, right axillary sentinel node biopsy. This will be scheduled as a short-stay surgery at her earliest convenience. She is welcome to call sooner for any concerns or questions. Coding Level of Care Code Est Pt Level 4 (69716) Diagnoses Malignant neoplasm of upper-outer quadrant of right breast in female, estrogen receptor positive C50.411; Z17.0 Breast location: upper outer quadrant of breast Estrogen receptor status: positive Patient sex: female
[2024-05-23 10:35] VITALS: BMI 25.8
== END 2024-05-23 10:57 | disposition home or self-care (01) ==
LOC: HO.HGS 10:10
PROVIDERS: PCP Internal Medicine; Visit Provider Surgery
DX: C50.411 Malignant neoplasm of upper-outer quadrant of right female breast (principal); Z17.0 Estrogen receptor positive status [ER+]
CPT/HCPCS: 99214

== ENCOUNTER → 2024-05-23 10:09 | Outpatient (BNVA) | payer MEDICARE, OTHER, SELFPAY | PROVIDERS: PCP Internal Medicine; Visit Provider Surgery | DX: C50.411 Malignant neoplasm of upper-outer quadrant of right female breast (principal); Z17.0 Estrogen receptor positive status [ER+] | CPT/HCPCS: 81001; 87086; 99212 ==

== ENCOUNTER 2024-05-23 12:23 | Outpatient (REF) | payer MEDICARE, OTHER, SELFPAY ==
[2024-05-23 12:29] LABS: Appearance Urine Clear; Color Urine Yellow; Glucose Urine UA Negative (Negative); Leukocyte Esterase Urine Small (1+) (Negative); Nitrite Urine Negative (Negative); Specific Gravity - Urine 1.015 (1.005-1.025); UMIC TRIGGER UACC YES; Urine Blood Negative (Negative); Urine Ketones Trace mg/dL (Negative); Urine Protein Negative (Neg-Trace)
[2024-05-23 12:32] LABS: Bacteria Urine Trace (None Seen); Hyaline Casts Urine 0-2 /LPF (0-2); RBC Urine 0-2 /HPF (0-2); UACC Culture Trigger YES
== END 2024-05-23 12:24 | disposition home or self-care (01) ==
LOC: HO.LNP 12:23
PROVIDERS: Visit Provider Internal Medicine
DX: Z13.89 Encounter for screening for other disorder (principal)
CPT/HCPCS: 81001; 87086

== ENCOUNTER → 2024-05-29 10:50 | Outpatient (BNV) | payer MEDICARE, OTHER, SELFPAY | PROVIDERS: PCP Internal Medicine; Referring Provider Internal Medicine; Visit Provider Internal Medicine Medical Oncology | DX: C50.811 Malignant neoplasm of overlapping sites of right female breast (principal) | CPT/HCPCS: 99204 ==

== ENCOUNTER 2024-06-01 09:32 | Outpatient (REF) | payer MEDICARE, OTHER, SELFPAY ==
--- NOTE | ~2024-06-01 | US_ITS ---
Ultrasound GUIDED RFID LOCALIZATION BREAST, Right CLINICAL INFORMATION: Right breast IDC COMPARISON: Priors on PACS TECHNIQUE NEEDLE LOC: Proper informed consent is obtained from the patient after discussion of the procedure, potential risks and complications, and alternatives including declining the procedure today. Patient was given an opportunity for questions. The patient appeared to understand. The patient consented to the procedure and signed the consent form. GUIDANCE: Ultrasound. APPROACH: lateral. TARGET: Butterlfy clip. ANESTHESIA: carbonated Lidocaine. LOCALIZATION SYSTEM: Access Point LOCallizer Wire-Free Guidance System with 12g needle applicator. RADIOFREQUENCY TAG: ID # [id number] RF Tag ID confirmed with LOCalizer Guidance System prior to placement. The skin is prepped and local anesthesia administered. The needle is positioned and RFID tag deployed. Final images demonstrate the LOCalizer RF tag to reside adjacent to clip The patient tolerated the procedure well and had no immediate complications. Dressing placed and home instructions reviewed. US/US Breast RF Tag Device Right IMPRESSION: -Status post right breast RFID localization. Electronically signed by: Iliana Hardy DO 06/01/2024 10:50 AM EDT
--- NOTE | ~2024-06-01 | MM_ITS ---
Ultrasound GUIDED RFID LOCALIZATION BREAST, Right CLINICAL INFORMATION: Right breast IDC COMPARISON: Priors on PACS TECHNIQUE NEEDLE LOC: Proper informed consent is obtained from the patient after discussion of the procedure, potential risks and complications, and alternatives including declining the procedure today. Patient was given an opportunity for questions. The patient appeared to understand. The patient consented to the procedure and signed the consent form. GUIDANCE: Ultrasound. APPROACH: lateral. TARGET: Butterlfy clip. ANESTHESIA: carbonated Lidocaine. LOCALIZATION SYSTEM: [employer] LOCallizer Wire-Free Guidance System with 12g needle applicator. RADIOFREQUENCY TAG: ID # [id number] RF Tag ID confirmed with LOCalizer Guidance System prior to placement. The skin is prepped and local anesthesia administered. The needle is positioned and RFID tag deployed. Final images demonstrate the LOCalizer RF tag to reside adjacent to clip The patient tolerated the procedure well and had no immediate complications. Dressing placed and home instructions reviewed. MM/MM tomosynthesis diagnostic RT IMPRESSION: -Status post right breast RFID localization. Electronically signed by: Iliana Hardy DO 06/01/2024 10:50 AM EDT
[2024-06-01] MEDS: Sodium Bicarbonate 8.4% 50 MEQ/50 ML VIAL SUBCUT (10:24)
[2024-06-01] MEDS: Lidocaine HCl 1 % 20 ML VIAL 9 ML SUBCUT (10:25)
== END 2024-06-01 09:33 | disposition home or self-care (01) ==
LOC: HO.MAMMO 09:32
PROVIDERS: PCP Internal Medicine; Visit Provider Surgery
DX: C50.411 Malignant neoplasm of upper-outer quadrant of right female breast (principal); Z17.0 Estrogen receptor positive status [ER+]
CPT/HCPCS: 19285; 77061; 77065; C1819; J2003

== ENCOUNTER → 2024-06-01 10:00 | Outpatient (BNV) | payer MEDICARE, OTHER, SELFPAY | PROVIDERS: PCP Internal Medicine; Visit Provider Internal Medicine | DX: C50.811 Malignant neoplasm of overlapping sites of right female breast (principal) | CPT/HCPCS: 19285; 77065; G0279 ==

== ENCOUNTER 2024-06-14 06:22 | Day surgery (SDC) | payer MEDICARE, OTHER, SELFPAY ==
[2024-05-31 12:53] VITALS: BMI 25.1
--- NOTE | 2024-06-13 09:54 | HO.ANESPROP2 ---
Documented by User: Lupe Joe NP 06/13/24 09:55 HPI - Anesthesia Eval Consult details Narrative: 78yo F for Right Breast Lumpectomy w/LOCalizer, Cushing Node Biopsy PMFSH Active Problems Active Problems: All Active Problems Breast cancer, right breast (Acute) Impacted cerumen of both ears (Acute) Dry cough (Acute) Low back pain (Acute) Osteopenia (Acute) Medicare annual wellness visit, initial (Acute) Insomnia (Acute) Breast cancer screening by mammogram (Acute) Colonoscopy refused (Acute) CKD stage 3a, GFR 45-59 ml/min (Acute) Hypercholesterolemia (Acute) Hypertension (Acute) Past Medical History Medical History Anxiety Back pain Osteopenia Insomnia HLD (hyperlipidemia) HTN (hypertension) Abnormal ultrasound of breast Abnormal mammogram Breast asymmetry Colon cancer screening Surgical History Surgical History Hx of bilateral cataract extraction Hx of LASIK Carpal tunnel syndrome on both sides Social History Social History Household Members: Spouse Housing: House Are you a primary rn managed care to a significant other at home: No Do you presently have visiting nurse or other home services: No Alcohol intake: current Comment: glass of wine once a day Patient Tobacco Use Status: Never used Tobacco e-Cigarette/Vaping Use: Never Used Second Hand Smoke Exposure: No Use of substances other than those prescribed or required for medical reasons: No Have you been hit, kicked, punched, or otherwise hurt by someone within the past year? If so, by whom?: No Are you DNR?: No Advance Directives: No (will bring dos) Advance Directives Information Provided: Yes Advance Directives on File: No Poor oral hygiene: No service: No Current occupational status: retired Cognitive needs: No Hearing needs: No Vision needs: Yes Meds Allergies Allergy/AdvReac Type Severity Reaction Status Date / Time Penicillins Allergy Severe Swelling Verified 06/14/24 07:44 Home Medications ?Medication ?Instructions ?Recorded ?Confirmed ?Last Taken ?Type multivitamin 1 tab PO DAILY 06/17/23 05/31/24 Unknown History Exam Height,Weight and Vital Signs: Height 4 ft 9 in Weight 52.617 kg Pertinent Lab Results Pertinent Lab Results: Laboratory Tests 05/29/24 12:08 WBC 7.4 Hgb 13.8 Hct 38.0 Plt Count 168 Sodium 141 Potassium 3.1 L Chloride 105 Carbon Dioxide 24 BUN 14 Creatinine 1.04 Assessment and Plan Assessment Anesthesia Assessment: Chart Reviewed Documented by User: Janet Zazueta MD 06/14/24 09:09 [facility] Past Medical History Medical History Anxiety Back pain Osteopenia Insomnia HLD (hyperlipidemia) HTN (hypertension) Abnormal ultrasound of breast Abnormal mammogram Breast asymmetry Colon cancer screening Family History Family history of problems with anesthesia: No Surgical History Surgical History Hx of bilateral cataract extraction Hx of LASIK Carpal tunnel syndrome on both sides History of Problems with Anesthesia: No Social History Social History Household Members: Spouse Housing: House Are you a primary rn managed care to a significant other at home: No Do you presently have visiting nurse or other home services: No Alcohol intake: current Comment: glass of wine once a day Patient Tobacco Use Status: Never used Tobacco e-Cigarette/Vaping Use: Never Used Second Hand Smoke Exposure: No Use of substances other than those prescribed or required for medical reasons: No Have you been hit, kicked, punched, or otherwise hurt by someone within the past year? If so, by whom?: No Are you DNR?: No Advance Directives: No (will bring dos) Advance Directives Information Provided: Yes Advance Directives on File: No Poor oral hygiene: No service: No Current occupational status: retired Cognitive needs: No Hearing needs: No Vision needs: Yes Meds Allergies Allergy/AdvReac Type Severity Reaction Status Date / Time Penicillins Allergy Severe Swelling Verified 06/14/24 07:44 Home Medications ?Medication ?Instructions ?Recorded ?Confirmed ?Last Taken ?Type multivitamin 1 tab PO DAILY 06/17/23 05/31/24 Unknown History Exam Airway Mallampati Class: II TM Dist: >3cm Heart: rrr Lungs: cta Assessment and Plan Final Anesthetic Review Family History of Problems with Anesthesia: No History of Problems with Anesthesia: No NPO: No (had meds with ham at 5 am, case postponed to 1300) ASA Class: III Final Preanesthetic Review: No Changes in Pt Med Stat, Meds/Allgs Chart Reviewed, Consent Obtained/Reviewed and Anes Risks/Benef Reviewed Patient Risk: Intermediate Procedure Risk: Intermediate Anesthetic Plan Anesthetic Plan: GA Disposition: Standard PACU
--- NOTE | ~2024-06-14 | MM_ITS ---
Multiple right breast specimen radiographs demonstrate the TAG within the specimen. No definite marker clip is seen within the specimen. If pathology does not note a marker clip within the specimen then a followup right breast mammogram is recommended to confirm clip was removed. Discussed with the Operating room staff 06/14/24 at 2:50 pm Electronically signed by: Iliana Hardy DO 06/14/2024 02:59 PM EDT
--- NOTE | ~2024-06-14 | NM_ITS ---
EXAMINATION: Right breast sentinel node imaging. CLINICAL INDICATION: Right breast malignant neoplasm. TECHNIQUE: 4% lidocaine was applied around right breast areola 30 minutes prior to exam. The area was then cleaned and draped in sterile fashion. 0.5 mCi of 99m technetium lymphoscintigraphy divided in 4 equal doses was injected subcutaneously in 4 quadrants around the right breast areola. Imaging was obtained 30 minutes later. Patient tolerated procedure extremely well. FINDINGS/ NM/NM sentinel node w imaging IMPRESSION: There is moderate activity seen around the right breast areola. There is solitary sentinel node seen in the right anterior axilla. Electronically signed by: Jonah Quintero MD 06/14/2024 01:07 PM EDT
[2024-06-14 07:29] VITALS: BMI 25.7
--- NOTE | 2024-06-14 07:30 | PC.NURSE ---
dr. carlson and dr. hewitt updated that patient wrapped her morning medications with a piece of ham at 0500. surgery is now scheduled for 1 pm. nuclear med is also rescheduled for 1100. patient family updated and stated will make sure patient remains npo until return time.
--- NOTE | 2024-06-14 09:55 | MHC.SHP ---
Pre-Procedural Eval Section A - 24 Hr Update-Section A only Date of Service: 06/14/24 The patient is an INPATIENT: No Changes since office visit: Yes Patient answered all questions; No Cold of Flu in the past 2 weeks, No New Medical Problems and No Changes in Medication The patient has been examined within 24 hours of the surgical procedure. The History & Physical has been completed within 30 days and I have reviewed it.: Yes Section B - Complete if H&P > 30 days Chief Complaint: Estrogen receptor positive status [ER+],malignant Allergies: Allergies Allergy/AdvReac Type Severity Reaction Status Date / Time Penicillins Allergy Severe Swelling Verified 06/14/24 07:44 Plan Diagnosis/Plan: Unchanged I have reviewed the history and physical and performed a pertinent physical examination on my patient. No changes have occurred unless specified. Time Spent With Patient Time: Total time managing care of this patient today ____ minutes.
[2024-06-14] MEDS: Lactated Ringers 1,000 ML 100 ML IVCONT (10:13)
[2024-06-14] MEDS: Lidocaine 4 % Cream KIT 1 APPL TOPICAL (10:13)
[2024-06-14 10:25] VITALS: BP 146/65; PULSE 84; RESP 18; TEMP 36.8; O2SAT 99
[2024-06-14] MEDS: vancomycin HCL 1,000 MG in 0.9 % Sodium Chloride 250 ML 270 MG IV (12:50)
--- NOTE | 2024-06-14 15:20 | P.OP_ITS ---
Operative Note Operative Note Date of Service: 06/14/24 Narrative: Preoperative diagnosis: Right breast invasive ductal carcinoma Postoperative diagnosis: Same Procedure: Right breast lumpectomy with localizer, right axillary sentinel node biopsy Surgeon: Guilherme Baugh MD Vice President Financial: Misty Garcia PA-C; Romaine Morgan PA-C Anesthesia: General LMA Indications for procedure: 78-year-old female patient with a density noted on the right breast at the upper outer quadrant confirmed by ultrasound, status post ultrasound-guided core biopsy which revealed invasive ductal carcinoma presenting today for right breast lumpectomy with sentinel node biopsy. Operative findings: Localizer clip noted within the specimen x-ray however marking clip could not be identified. Several additional specimens were obtained without evidence of marking clip. Gross pathology however confirmed the tumor within the specimen. Specimen: Right breast lumpectomy, sentinel node biopsy, additional right axillary lymph nodes Estimated blood loss: 10 mL Complications: None Procedure details: Patient was brought to the OR and placed in a supine position. After administering general anesthesia, the patient's was right breast was prepped with ChloraPrep and draped in a sterile fashion. A surgical time-out was called the consent confirmed. Patient received preoperative antibiotics and Venodyne boots were in place. Local anesthesia consisting of 0.5% Sensorcaine was infiltrated in the upper outer quadrant a transverse fashion. Incision was then made with a scalpel and carried out through subcutaneous tissue. Superior and inferior skin flaps were then created with electrocautery. Using the localizer as a guide a core of tissue surrounding the localizer was then obtained. This started with the superior margin, medial margin, inferior margin, posterior margin and finally the lateral margin. Margins were marked with a long suture at the lateral margin, short suture at the superior margin, and looped suture at the deep margin. Specimen x-ray confirmed the localizer clip within the specimen. No marking clip could be identified however. Additional images were obtained and no marking clip could be identified. Additional specimens were obtained from the lateral anterior/inferior margin and a 2nd lateral margin was obtained and x- rayed. No marking clip was identified within the specimen. The specimen was sent to pathology which confirmed the tumor within the specimen. Margins were felt to be clear. Using the gamma probe areas of increased activity were identified in the right axilla approached through the same breast incision. Hemostat was used to dissect down into the axillary compartment. This has then grasped with an Allis clamp and cauterized free. A sentinel node with a proximally 4700 counts was identified and sent as sentinel node 1. Additional palpable nodes were noted in the region and sent as additional axillary nodes. No radio activity was noted in any of the enlarged nodes. Wounds were then irrigated with saline solution. The biopsy cavity was marked with hemoclips to assist with radiation therapy. Breast tissue was then reapproximated in the deep breast tissue using interrupted 3-0 Polysorb sutures. Superficial breast tissue was reapproximated using interrupted 3-0 Polysorb sutures. Dermis was reapproximated using interrupted 3-0 Polysorb sutures. Skin was then closed using a running subcuticular 4-0 Polysorb suture. Sterile dressings consisting of Steri-Strips, 4 x 4 gauze and Tegaderm were then applied. The patient tolerated the procedure well. Sponge, instrument, and needle counts reported as correct. The patient was transferred to PACU in stable condition.
[2024-06-14 15:30] VITALS: BP 132/79; PULSE 79; RESP 16; TEMP 36.1; O2SAT 98
[2024-06-14 15:35] VITALS: BP 133/63; PULSE 73; RESP 16; O2SAT 96
[2024-06-14 15:40] VITALS: BP 121/51; PULSE 70; RESP 16; O2SAT 96
[2024-06-14 15:45] VITALS: BP 132/62; PULSE 75; RESP 16; TEMP 36.1; O2SAT 96
[2024-06-14 15:55] VITALS: BP 129/57; PULSE 74; RESP 16; O2SAT 96
== END 2024-06-14 15:57 | disposition home or self-care (01) ==
PROVIDERS: PCP Internal Medicine; Visit Provider Surgery
PROC: (CPT 19301; principal; 2024-06-14 14:00)
PROC: (CPT 19301; 2024-06-14 14:00)
DX: C50.411 Malignant neoplasm of upper-outer quadrant of right female breast (principal); Z17.0 Estrogen receptor positive status [ER+]; Z17.21 Progesterone receptor positive status; Z17.32 Human epidermal growth factor receptor 2 negative status; I12.9 Hypertensive chronic kidney disease with stage 1 through stage 4 chronic kidney disease, or unspecified chronic kidney disease; N18.31 Chronic kidney disease, stage 3a; E78.00 Pure hypercholesterolemia, unspecified; Z79.899 Other long term (current) drug therapy; Z88.0 Allergy status to penicillin; Z98.890 Other specified postprocedural states
CPT/HCPCS: 19301; 38525; 38900; 78195; 88305; 88307; 88329; 88342; A9520; J0131; J1100; J2003; J2405; J2704; J3010; J3370

== ENCOUNTER → 2024-06-14 06:22 | Outpatient (BNV) | payer MEDICARE, OTHER, SELFPAY | PROVIDERS: PCP Internal Medicine; Visit Provider Surgery | DX: C50.411 Malignant neoplasm of upper-outer quadrant of right female breast (principal) | CPT/HCPCS: 19301; 38525; 38900 ==

== ENCOUNTER → 2024-06-14 11:00 | Outpatient (BNV) | payer MEDICARE, OTHER, SELFPAY | PROVIDERS: PCP Internal Medicine; Visit Provider Radiology Diagnostic Radiology | DX: C77.3 Secondary and unspecified malignant neoplasm of axilla and upper limb lymph nodes (principal) | CPT/HCPCS: 78195 ==

== ENCOUNTER 2024-06-28 10:22 | Outpatient (AMB) | payer MEDICARE, OTHER, SELFPAY ==
[2024-06-28 10:36] VITALS: BP 118/62; PULSE 80; O2SAT 98; BMI 24.9
--- NOTE | 2024-06-28 10:36 | MHC.PC.OV ---
Vital Signs 06/28/24 10:36 Height 4 ft 9 in Weight 115 lb BMI 24.9 BP 118/62 Blood Pressure Location Lt brachial Position Sitting Pulse 80 Pulse Source Pulse Oximeter Pulse Oximetry (%) 98 Oxygen Delivery Method Room Air Intake Visit Reasons: breast assymetry Right, HTN , Cholesterol Allergies Penicillins Allergy (Severe, Verified 06/28/24 10:37) Swelling Tobacco use date assessed: 05/22/24 Fall risk assessment: No Falls in past year Last assessed Fall Risk: 06/28/24 Dental Screening Dental Screen Date: 03/28/24 [facility] Medical History (Updated 06/28/24 @ 11:21 by Len Villanueva MD) Anxiety Back pain Osteopenia Insomnia HLD (hyperlipidemia) HTN (hypertension) Abnormal ultrasound of breast Abnormal mammogram Breast asymmetry Colon cancer screening Surgical History (Updated 06/20/24 @ 16:57 by DEBBIE Moe) History of lumpectomy of right breast (06/14/24) Hx of bilateral cataract extraction Hx of LASIK Carpal tunnel syndrome on both sides Social History Household Members: Spouse Housing: House Are you a primary critical care nurse practitioner to a significant other at home: No Do you presently have visiting nurse or other home services: No Alcohol intake: current Comment: glass of wine once a day Patient Tobacco Use Status: Never used Tobacco e-Cigarette/Vaping Use: Never Used Second Hand Smoke Exposure: No service: No Current occupational status: retired Cognitive needs: No Hearing needs: No Vision needs: Yes Female Reproductive History Menstrual Age of Menarche: 13 Questionnaire PHQ-9 Over the last 2 weeks, how often have you been bothered by any of the following problems? 1. Little interest or pleasure in doing things: not at all 2. Feeling down, depressed, or hopeless: not at all 3. Trouble falling or staying asleep, or sleeping too much: several days 4. Feeling tired or having little energy: several days 5. Poor appetite or overeating: not at all 6. Feeling bad about yourself - or that you are a failure or have let yourself or your family down: not at all 7. Trouble concentrating on things, such as reading the newspaper or watching television: not at all 8. Moving or speaking so slowly that other people could have noticed. Or the opposite - being so fidgety or restless that you have been moving around a lot more than usual: not at all 9. Thoughts that you would be better off or of hurting yourself in some way: not at all Total score: 2 Depression Screening Interpretation: Positive Depression Screening Done: Yes Source: Developed by Drs. Alfie Gillespie, Maureen Light, Jack Ayon and colleagues, with an educational kirby from [employer] Thrive Questionnaire Date Thrive assessed: 06/28/24 I am a: Parent/Caregiver What is your living situation today?: I have a steady place to live Within the past 12 months, did the food you bought not last and you didn't have the money to get more?: Never true Within the past 12 months, did you worry whether your food would run out before you got money to buy more?: Never true Do you have trouble paying for medicines?: No Do you have trouble getting transportation to medical appointments?: No Do you have trouble paying your heating and electricity bill?: No Do you have trouble taking care of your child, family member or friend?: No Do you have trouble with day-to-day activities such as bathing, preparing meals, shopping, managing finances, etc.?: No Are you currently unemployed and looking for a job?: No Are you interested in more education?: No Currently or been in a relationship where the following occur: No concerns reported THRIVE Score: 0 AUDIT C Alcohol Use Questionnaire (AUDIT-C) 2. How many drinks containing alcohol do you have on a typical day when you are drinking?: 1 or 2 3. How often do you have six or more drinks on one occasion?: Daily or almost daily Total Score: 4 RESHMA-7 AMB Questionnaire RESHMA-7 Date RESHMA - 7 assessed: 06/28/24 Feeling nervous, anxious, or on edge: 1 = Several days Not being able to stop or control worryin = Several days Worrying too much about different things: 1 = Several days Trouble relaxin = Several days Being so restless that it is hard to sit still: 0 = Not at all Becoming easily annoyed or irritable: 0 = Not at all Feeling afraid as if something awful might happen: 1 = Several days Total RESHMA-7 score (0-4 normal; 5-9 mild; 10-14 moderate; 15-21 severe): 5 Source: Developed by Drs. Alfie Gillespie, Maureen Light, Jack Ayon and colleagues, with an educational kirby from [employer] RESHMA-7 Assessment Billing RESHMA-7 Assessment Tool: RESHMA-7 Assessment 66220 Physical exam (Primary Care) Vital Signs: Last Vital Signs Pulse 80 06/28/24 10:36 BP 118/62 06/28/24 10:36 Pulse Ox 98 06/28/24 10:36 Oxygen Delivery Method Room Air 06/28/24 10:36 BMI result Body Mass Index 24.9 Tobacco/Smoking Status: Tobacco use Status Tobacco use date assessed 05/22/24 06/28/24 10:38 Patient Tobacco Use Status Never used Tobacco 06/28/24 10:38 Tobacco use type Cigarette 06/28/24 10:38 e-Cigarette/Vaping Use Never Used 06/28/24 10:38 PHQ-9: PHQ-9 Score PHQ-9: Total score 2 06/28/24 11:19 Depression Screening Interpretation: Positive Thrive Assessment: Date of Thrive Assessment Date Thrive assessed 06/28/24 06/28/24 10:38 Currently or been in a relationship where the following occur: No concerns reported Const General: alert; No acute distress Eyes Conjunctivae: conjunctivae normal Resp Auscultation: clear to auscultation bilaterally Cardio Rate: regular rate Rhythm: regular rhythm GI Inspection: Yes normal to inspection Extrem General: Yes normal to inspection and No edema Coding Level of Care Code Est Pt Level 4 (53002) Complex EM visit Add On G2211 Diagnoses Malignant neoplasm of upper-outer quadrant of right breast in female, estrogen receptor positive C50.411; Z17.0 Breast location: upper outer quadrant of breast Estrogen receptor status: positive Patient sex: female Primary hypertension I10 Hypertension type: primary hypertension Hypercholesterolemia E78.00 CKD stage 3a, GFR 45-59 ml/min N18.31 Osteopenia M85.80 Hypokalemia E87.6 Elevated blood sugar R73.9 Additional Codes RESHMA-7 Assessment Billing - RESHMA-7 Assessment Tool: RESHMA-7 Assessment 86985 ([id number]) Assessment & Plan Assessment & Plan (1) Breast cancer, right breast: Comment: April 2024Invasive ductal carcinoma, MSBR grade 1, with cribriform features May 2024 right breast lumpectomy Code(s): C50.911 - Malignant neoplasm of unspecified site of right female breast Category: Medical Qualifiers: Breast location: upper outer quadrant of breast Estrogen receptor status: positive Patient sex: female Qualified Code(s): C50.411 - Malignant neoplasm of upper-outer quadrant of right female breast; Z17.0 - Estrogen receptor positive status [ER+] Plan: Status post breast lumpectomy. Patient is going to follow-up with the surgeon then Hematology-Oncology. (2) Hypertension: Code(s): I10 - Essential (primary) hypertension Category: Medical Qualifiers: Hypertension type: primary hypertension Qualified Code(s): I10 - Essential (primary) hypertension Plan: Continue with blood pressure medication. Decrease salt intake and exercise on amlodipine 7.5 mg and hydrochlorothiazide but on account of hypokalemia will discussed with the patient on changing. (3) Hypercholesterolemia: Code(s): E78.00 - Pure hypercholesterolemia, unspecified Category: Medical Plan: Avoid fried foods, chicken skin, eggs, butter margarine, pastries and meat. Be it pork or beef they have a lot of cholesterol patient's LDL is good and HDL is high. (4) CKD stage 3a, GFR 45-59 ml/min: Code(s): N18.31 - Chronic kidney disease, stage 3a Category: Medical Plan: Keep well hydrated avoid NSAIDs (5) Osteopenia: Code(s): M85.80 - Other specified disorders of bone density and structure, unspecified site Category: Medical Plan: Patient will be on an a estrogen medication. (6) Hypokalemia: Code(s): E87.6 - Hypokalemia Category: Medical (7) Elevated blood sugar: Code(s): R73.9 - Hyperglycemia, unspecified Category: Medical Plan History of Present Illness The patient is a 78-year-old female presenting for follow-up after recent breast cancer surgery. Her history includes a diagnosis of right breast invasive ductal carcinoma in April 2024, leading to a right breast lumpectomy on June 14, 2024. The carcinoma was classified as grade 1, with no lymph node involvement, supporting a favorable prognosis. Aside from her cancer, she has been managing essential hypertension with combination therapy of amlodipine and hydrochlorothiazide. Recent lab results have highlighted hypokalemia, indicating the need for possible medication adjustment due to the diuretic effects of hydrochlorothiazide. Her renal function remains stable, but blood glucose levels were elevated, necessitating further investigation into her glycemic control. She also has a history of osteopenia and hypercholesterolemia, treated with atorvastatin. Her cholesterol levels are well-controlled, and she maintains a relatively healthy lifestyle with ample hydration. There have been no reports of common symptoms of low potassium such as muscle cramps, and she engages in regular physical activity. Health Maintenance - Encouraged hydration and a diet rich in fruits and vegetables - Emphasized the importance of physical activity - Discussed benefits of anti-estrogen therapy post-breast cancer surgery - Plan for potential adjustment of hypertension medication if hypokalemia persists Social History - Reports engaging in regular physical activity, primarily walking - Consumes a diet that includes efforts to stay hydrated Review of Systems - Cardiovascular: Denies leg cramps, chest pain, or palpitations - Endocrine: Reports stable osteopenia status - Oncology: Status post breast lumpectomy with no new concerning symptoms - General: Denies fatigue despite hypokalemia Physical Exam Results - Labs: Stable renal function, normocytic normochromic profile, elevated blood glucose (148 mg/dL on May 29, 2024) - Tests/Diagnostics: Negative margins and lymph node involvement post-lumpectomy Plan We will evaluate the necessity of adjusting hypertension medication based on potassium levels, with potential substitution for hydrochlorothiazide if hypokalemia persists. The patient's cholesterol regimen will continue as it demonstrates efficacy. Monitoring activities will extend to evaluating blood sugar through a fasting test to confirm glycemic control. Post-operative care includes starting anti-estrogen therapy, with anticipated follow-up in hematology/oncology to ensure comprehensive cancer management. Hydration and dietary adjustments featuring fruits and vegetables are advised for overall wellness and bone health. Patient was informed and verbally consented to the use of an ambient scribe for clinic note documentation during this visit. Discussion Notes We reviewed the patient's status post-breast cancer surgery, noting the successful removal of the carcinoma with clear margins. The patient has been informed about starting anti-estrogen therapy for recurrence prevention. I discussed the potential need to alter her antihypertensive medications if hypokalemia remains problematic due to hydrochlorothiazide. The importance of a balanced diet, including adequate hydration, was emphasized, alongside regular physical activity. We will pursue follow-up tests, including a fasting glucose, to investigate blood sugar regulation, with the patient understanding the rationale. The coordination with hematology/oncology will proceed to align further care strategies. Patient Instructions - Drink enough water daily; aim for at least eight glasses - Consume a diet rich in fruits and vegetables, especially those high in potassium - Continue to monitor blood pressure and report any new symptoms - Be mindful of signs of low potassium such as muscle cramps - Prepare for a fasting blood sugar test as discussed - Contact the oncologist for anti-estrogen therapy follow-up - Maintain regular physical activity as tolerated. Orders: Orders Comprehensive Met. Panel Today R73.9 - Hyperglycemia, unspecified Hemoglobin A1c Today R73.9 - Hyperglycemia, unspecified Medications: Discontinued potassium chloride ER (Simona Rust) Discontinued Reason: Patient Completed Course 10 mEq orally BID x 3 days then once a day; 30 days 33 tabs 0RF
== END 2024-06-28 12:49 | disposition home or self-care (01) ==
LOC: HO.HMCH 10:23
PROVIDERS: PCP Internal Medicine; Visit Provider Internal Medicine
DX: I12.9 Hypertensive chronic kidney disease with stage 1 through stage 4 chronic kidney disease, or unspecified chronic kidney disease (principal); N18.31 Chronic kidney disease, stage 3a; C50.411 Malignant neoplasm of upper-outer quadrant of right female breast; Z17.0 Estrogen receptor positive status [ER+]; E78.00 Pure hypercholesterolemia, unspecified; M85.80 Other specified disorders of bone density and structure, unspecified site; E87.6 Hypokalemia; R73.9 Hyperglycemia, unspecified

== ENCOUNTER → 2024-06-28 10:22 | Outpatient (BNVA) | payer MEDICARE, OTHER, SELFPAY | PROVIDERS: PCP Internal Medicine; Visit Provider Internal Medicine | DX: C50.411 Malignant neoplasm of upper-outer quadrant of right female breast (principal); Z17.0 Estrogen receptor positive status [ER+]; E78.00 Pure hypercholesterolemia, unspecified; I12.9 Hypertensive chronic kidney disease with stage 1 through stage 4 chronic kidney disease, or unspecified chronic kidney disease; N18.31 Chronic kidney disease, stage 3a; M85.80 Other specified disorders of bone density and structure, unspecified site; E87.6 Hypokalemia; R73.9 Hyperglycemia, unspecified | CPT/HCPCS: 96127; 99212 ==

== ENCOUNTER 2024-06-30 11:23 | Outpatient (AMB) | payer MEDICARE, OTHER, SELFPAY ==
--- NOTE | 2024-06-30 11:25 | A.OFFVIS_ITS ---
Vital Signs 3 06/30/24 11:32 Height 4 ft 9 in Weight 116 lb 4 oz BMI 25.2 BP 134/69 Blood Pressure Location Lt brachial Position Sitting Pulse 118 H Intake Visit Reasons: s/p right breast lumpectomy 06/14/24 Intake Note: Patient is seen in office for post op assessment post right breast lumpectomy. 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 Accompanied by: Spouse Allergies Penicillins Allergy (Severe, Verified 06/30/24 11:32) Swelling Medication List - Last Reconciled 06/30/24 by Guilherme Baugh MD amlodipine 7.5 mg (1.5 x 5 mg) PO .QD 90 days atorvastatin 20 mg PO DAILY bacitracin zinc (Antibiotic (bacitracin zinc)) 1 appl topical Q8H hydrochlorothiazide 25 mg PO DAILY oxycodone 5 mg PO Q6H PRN trazodone 100 mg (2 x 50 mg) PO BEDTIME PRN HPI Comments Details: 78-year-old female patient presenting with a screening mammogram performed on 02/14/2024 with additional images obtained on 03/23/2024 including an ultrasound of the right breast which revealed a solid irregular mass in the right breast at the 9 o'clock position, 10 cm from the nipple measuring 2 x 3 x 3 mm. This was felt to be suspicious for malignancy (BI-RADS 4) and ultrasound-guided core biopsy recommended. She underwent this procedure at the [facility] on 05/17/2024. She denies a history of breast problems or breast surgery. She denies any current breast symptoms. Her family history is negative for breast or ovarian cancer. She is 1 para 1 and was 21 years old when she had her 1st child. Menarche was at the age of 13. She went through menopause in her late 50s. Pathology revealed an invasive ductal carcinoma, grade 1, ER/HI positive, HER2 Justin negative, Ki-67 low. She subsequently underwent a right breast lumpectomy with sentinel node biopsy performed on 06/14/2024. This revealed invasive ductal carcinoma grade 1, 9 mm in size with negative margins. 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 Four sentinel nodes and 2 non sentinel nodes were negative for metastatic carcinoma. [facility] Medical History Anxiety Back pain Osteopenia Insomnia HLD (hyperlipidemia) HTN (hypertension) Abnormal ultrasound of breast Abnormal mammogram Breast asymmetry Colon cancer screening Surgical History History of lumpectomy of right breast (06/14/24) Hx of bilateral cataract extraction Hx of LASIK Carpal tunnel syndrome on both sides Social History Household Members: Spouse Housing: House Are you a primary personal care aid to a significant other at home: No Do you presently have visiting nurse or other home services: No Alcohol intake: current Comment: glass of wine once a day Patient Tobacco Use Status: Never used Tobacco e-Cigarette/Vaping Use: Never Used Second Hand Smoke Exposure: No service: No Current occupational status: retired Cognitive needs: No Hearing needs: No Vision needs: Yes Female Reproductive History Menstrual Age of Menarche: 13 Review of Systems Const All systems reviewed & are unremarkable except as noted in HPI and below Physical Exam Const General: comfortable Nutritional Appearance: well nourished Chest Other: Well-healed incision in the upper outer quadrant of the right breast with no underlying hematoma or seroma. No swelling noted in the right axilla. Steri- Strips were still present. These were removed in the incision found to be well healed. Chest/axillae images: 2 1. Incision upper outer quadrant right breast Resp Effort & Inspection: normal respiratory effort Skin Other: Warm, dry, no rash Neuro Other: Mobility Assessment: 1. 3 meter assessment time (seconds) 6 2. Gait observations: Normal balance and gait Extrem General: Yes no clubbing, cyanosis or edema Assessment & Plan Assessment & Plan (1) Breast cancer, right breast: Comment: April 2024Invasive ductal carcinoma, MSBR grade 1, with cribriform features May 2024 right breast lumpectomy Code(s): C50.911 - Malignant neoplasm of unspecified site of right female breast Category: Medical Qualifiers: Breast location: upper outer quadrant of breast Estrogen receptor status: positive Patient sex: female Qualified Code(s): C50.411 - Malignant neoplasm of upper-outer quadrant of right female breast; Z17.0 - Estrogen receptor positive status [ER+] Plan 78-year-old female patient status post right breast lumpectomy with sentinel node biopsy for invasive ductal carcinoma returning for wound check. She tolerated the procedure well and her wounds are healing nicely. She will continue her follow-up with Dr. Enamorado follow up in our office in approximately 1 month. Coding Level of Care Code Global (55620) Diagnoses Malignant neoplasm of upper-outer quadrant of right breast in female, estrogen receptor positive C50.411; Z17.0 Breast location: upper outer quadrant of breast Estrogen receptor status: positive Patient sex: female
[2024-06-30 11:32] VITALS: BP 134/69; PULSE 118; BMI 25.2
== END 2024-06-30 11:39 | disposition home or self-care (01) ==
LOC: HO.HGS 11:24
PROVIDERS: PCP Internal Medicine; Visit Provider Surgery
DX: C50.411 Malignant neoplasm of upper-outer quadrant of right female breast (principal); Z17.0 Estrogen receptor positive status [ER+]
CPT/HCPCS: 99024

== ENCOUNTER → 2024-06-30 11:23 | Outpatient (BNVA) | payer MEDICARE, OTHER, SELFPAY | PROVIDERS: PCP Internal Medicine; Visit Provider Surgery | DX: C50.411 Malignant neoplasm of upper-outer quadrant of right female breast (principal); Z17.0 Estrogen receptor positive status [ER+]; Z98.890 Other specified postprocedural states | CPT/HCPCS: 99212 ==

== ENCOUNTER 2024-11-09 09:29 | Outpatient (REF) | payer MEDICARE, OTHER, SELFPAY ==
--- NOTE | ~2024-11-09 | XR_ITS ---
EXAMINATION: XR CHEST CLINICAL INFORMATION: R05.9 - Cough, unspecified COMPARISON: None available. TECHNIQUE: 2 views of the chest were obtained. FINDINGS: The cardiac, hilar, and mediastinal contours are normal. Mild aortic mural calcification. The lungs are clear bilaterally. Small nodular opacity abutting the right heart border is felt to represent overlying artifact. There is no pneumothorax or pleural effusion. There is no focal osseous or soft tissue abnormality. There are surgical clips in the right breast. There are degenerative changes throughout the spine with mild levoconvex scoliosis. There is a chronic appearing mild L1 superior endplate compression deformity. XR/XR chest 2V IMPRESSION: No active pulmonary disease. Electronically signed by: Rosalino Gould MD 11/09/2024 11:51 AM EDT
[2024-11-09 13:08] LABS: Alanine Aminotransferase 16 U/L (0-31); Albumin Level 4.6 g/dL (3.5-5.0); Alkaline Phosphatase 90 U/L (39-117); Anion Gap 14 (12-20); Aspartate Amino Transferase 26 U/L (5-31); Blood Urea Nitrogen 13 mg/dL (9-16); Calcium 9.5 mg/dL (8.4-10.2); Carbon Dioxide 30 mmol/L (22-29); Chloride 98 mmol/L (96-108); Estimated Glomerular Filt Rate 33; Magnesium 1.9 mg/dL (1.6-2.6); Potassium 2.6 mmol/L (3.3-5.1); Sodium 139 mmol/L (135-145); Total Protein 7.4 g/dL (6.5-8.0)
== END 2024-11-09 09:30 | disposition home or self-care (01) ==
LOC: HO.LAB 09:29
PROVIDERS: PCP Internal Medicine; Visit Provider Internal Medicine
DX: I12.9 Hypertensive chronic kidney disease with stage 1 through stage 4 chronic kidney disease, or unspecified chronic kidney disease (principal); N18.31 Chronic kidney disease, stage 3a; C50.411 Malignant neoplasm of upper-outer quadrant of right female breast; R73.9 Hyperglycemia, unspecified; R05.9 Cough, unspecified; E78.00 Pure hypercholesterolemia, unspecified; E87.6 Hypokalemia; Z17.0 Estrogen receptor positive status [ER+]
CPT/HCPCS: 36415; 71046; 80053; 83036; 83735; 99212

== ENCOUNTER 2024-11-09 09:29 | Outpatient (AMB) | payer MEDICARE, OTHER, SELFPAY ==
[2024-11-09 09:40] VITALS: BP 124/62; PULSE 83; O2SAT 98; BMI 23.8
--- NOTE | 2024-11-09 09:40 | A.OFFPC_ITS ---
Vital Signs 11/09/24 09:40 Height 4 ft 9 in Weight 110 lb BMI 23.8 BP 124/62 Blood Pressure Location Lt brachial Position Sitting Pulse 83 Pulse Source Pulse Oximeter Pulse Oximetry (%) 98 Oxygen Delivery Method Room Air Intake Visit Reasons: Breast cancer right hypertension, hypokalemia Intake Note: Patient is losing weight and has no appetite. She also can not get the potassium tablet down. Allergies Penicillins Allergy (Severe, Verified 11/09/24 09:41) Swelling Medication List - Last Reconciled 11/09/24 by Len Villanueva MD amlodipine 7.5 mg (1.5 x 5 mg) PO .QD 90 days atorvastatin 20 mg PO DAILY bacitracin zinc (Antibiotic (bacitracin zinc)) 1 appl topical Q8H benzonatate 200 mg PO BID-TID PRN letrozole 2.5 mg PO Q24H potassium chloride ER 20 mEq PO DAILY ribociclib 400 mg PO DAILY trazodone 100 mg (2 x 50 mg) PO BEDTIME PRN Tobacco use date assessed: 05/22/24 Fall risk assessment: No Falls in past year Last assessed Fall Risk: 11/09/24 Dental Screening Dental Screen Date: 03/28/24 [facility] Medical History Anxiety Back pain Osteopenia Insomnia HLD (hyperlipidemia) HTN (hypertension) Abnormal ultrasound of breast Abnormal mammogram Breast asymmetry Colon cancer screening Surgical History History of lumpectomy of right breast (06/14/24) Hx of bilateral cataract extraction Hx of LASIK Carpal tunnel syndrome on both sides Social History Household Members: Spouse Housing: House Are you a primary hearing healthcare practitioner to a significant other at home: No Do you presently have visiting nurse or other home services: No Alcohol intake: current Comment: glass of wine once a day Patient Tobacco Use Status: Never used Tobacco Tobacco use type: Cigarette e-Cigarette/Vaping Use: Never Used Second Hand Smoke Exposure: No service: No Current occupational status: retired Cognitive needs: No Hearing needs: No Vision needs: Yes Female Reproductive History Menstrual Age of Menarche: 13 Questionnaire Thrive Questionnaire Date Thrive assessed: 06/28/24 What is your living situation today?: I have a steady place to live Within the past 12 months, did the food you bought not last and you didn't have the money to get more?: Never true Within the past 12 months, did you worry whether your food would run out before you got money to buy more?: Never true Do you have trouble paying for medicines?: No Do you have trouble getting transportation to medical appointments?: No Do you have trouble paying your heating and electricity bill?: No Do you have trouble taking care of your child, family member or friend?: No Do you have trouble with day-to-day activities such as bathing, preparing meals, shopping, managing finances, etc.?: No Are you currently unemployed and looking for a job?: No Are you interested in more education?: No Please select the resources that you would like help with: None Currently or been in a relationship where the following occur: No concerns reported THRIVE Score: 0 AUDIT C Alcohol Use Questionnaire (AUDIT-C) 1. How often do you have a drink containing alcohol?: 4 or more times a week 2. How many drinks containing alcohol do you have on a typical day when you are drinking?: 1 or 2 3. How often do you have six or more drinks on one occasion?: Never Total Score: 4 RESHMA-7 AMB Questionnaire RESHMA-7 Date RESHMA - 7 assessed: 06/28/24 Feeling nervous, anxious, or on edge: 2 = More than half the days Not being able to stop or control worryin = More than half the days Worrying too much about different things: 2 = More than half the days Trouble relaxin = Several days Being so restless that it is hard to sit still: 1 = Several days Becoming easily annoyed or irritable: 1 = Several days Feeling afraid as if something awful might happen: 0 = Not at all Total RESHMA-7 score (0-4 normal; 5-9 mild; 10-14 moderate; 15-21 severe): 9 Source: Developed by Drs. Alfie Gillespie, Maureen Light, Jack Ayon and colleagues, with an educational kirby from [employer]. Physical exam (Primary Care) Vital Signs: Last Vital Signs Pulse 83 11/09/24 09:40 BP 124/62 11/09/24 09:40 Pulse Ox 98 11/09/24 09:40 Oxygen Delivery Method Room Air 11/09/24 09:40 BMI result Body Mass Index 23.8 Tobacco/Smoking Status: Tobacco use Status Tobacco use date assessed 05/22/24 11/09/24 09:46 Patient Tobacco Use Status Never used Tobacco 11/09/24 09:46 Tobacco use type Cigarette 11/09/24 09:46 e-Cigarette/Vaping Use Never Used 11/09/24 09:46 Thrive Assessment: Date of Thrive Assessment Date Thrive assessed 06/28/24 11/09/24 09:46 Currently or been in a relationship where the following occur: No concerns reported Const General: alert; No acute distress Eyes Conjunctivae: conjunctivae normal Resp Auscultation: clear to auscultation bilaterally Cardio Rate: regular rate Rhythm: regular rhythm GI Inspection: Yes normal to inspection Extrem General: Yes normal to inspection and No edema Coding Level of Care Code Est Pt Level 4 (71418) Complex EM visit Add On G2211 Diagnoses Primary hypertension I10 Hypertension type: primary hypertension Hypercholesterolemia E78.00 Elevated blood sugar R73.9 CKD stage 3a, GFR 45-59 ml/min N18.31 Hypokalemia E87.6 Malignant neoplasm of upper-outer quadrant of right breast in female, estrogen receptor positive C50.411; Z17.0 Breast location: upper outer quadrant of breast Estrogen receptor status: positive Patient sex: female Cough R05.9 Assessment & Plan Assessment & Plan (1) Hypertension: Code(s): I10 - Essential (primary) hypertension Category: Medical Qualifiers: Hypertension type: primary hypertension Qualified Code(s): I10 - Essential (primary) hypertension Plan: Continue with blood pressure medication. Decrease salt intake and exercise presently on amlodipine 7.5 mg once a day hydrochlorothiazide 25 mg once a day (2) Hypercholesterolemia: Code(s): E78.00 - Pure hypercholesterolemia, unspecified Category: Medical Plan: Avoid fried foods, chicken skin, eggs, butter margarine, pastries and meat. Be it pork or beef they have a lot of cholesterol on atorvastatin 20 mg once a day (3) Elevated blood sugar: Code(s): R73.9 - Hyperglycemia, unspecified Category: Medical Plan: Will have to do a hemoglobin A1c on the next blood work (4) CKD stage 3a, GFR 45-59 ml/min: Code(s): N18.31 - Chronic kidney disease, stage 3a Category: Medical Plan: Stable well hydrated avoid NSAIDs (5) Hypokalemia: Code(s): E87.6 - Hypokalemia Category: Medical Plan: Discussed with the patient that we need to stop hydrochlorothiazide and monitor the potassium (6) Breast cancer, right breast: Comment: April 2024Invasive ductal carcinoma, MSBR grade 1, with cribriform features May 2024 right breast lumpectomy Code(s): C50.911 - Malignant neoplasm of unspecified site of right female breast Category: Medical Qualifiers: Breast location: upper outer quadrant of breast Estrogen receptor status: positive Patient sex: female Qualified Code(s): C50.411 - Malignant neoplasm of upper-outer quadrant of right female breast; Z17.0 - Estrogen receptor positive status [ER+] Plan: Continue to follow-up with Hematology-Oncology has been placed on ribociclib and on letrozole (7) Cough: Code(s): R05.9 - Cough, unspecified Category: Medical Plan History of Present Illness The patient is a 79-year-old female presenting for a follow-up visit. She has a history of breast cancer and underwent a right lumpectomy with sentinel node dissection in May 2022. She is currently on letrozole and ribociclib as part of her treatment regimen. Her last mammogram was in February 2024, and she continues to follow up with hematology oncology. The patient also has a history of hypertension, hypercholesterolemia, and chronic kidney disease. She is currently on amlodipine and hydrochlorothiazide for blood pressure management, and atorvastatin for cholesterol control. Recent blood work showed normal renal function but elevated blood sugar and liver enzymes. Osteopenia was noted from the last bone density test conducted in December 2023. The patient has been advised to maintain hydration and avoid NSAIDs. She has experienced a 5-pound weight loss recently and has declined a colon test. Her vaccinations are mostly up to date, including shingles and tetanus, but she needs to complete the pneumonia series. Health Maintenance - Mammogram conducted in February 2024 - Bone density test conducted in December 2023 - Vaccinations: Shingles and tetanus up to date, pneumonia series incomplete Social History Review of Systems Physical Exam Results - Labs: Normal blood count, low potassium at 2.6, normal renal function, elevated blood sugar at 117, elevated liver enzymes at 40 and 46 - Tests: Mammogram in February 2024, bone density test in December 2023 Plan Patient was informed and verbally consented to the use of an ambient scribe for clinic note documentation during this visit. 1. Breast Cancer The patient continues on letrozole and ribociclib for breast cancer management and follows up with hematology oncology. Her last mammogram was in February 2024, and she is advised to continue regular follow-ups. 2. Hypertension The patient is currently on amlodipine and hydrochlorothiazide for hypertension management. It was discussed to stop hydrochlorothiazide due to low potassium levels and monitor potassium closely. 3. Hypercholesterolemia The patient is on atorvastatin for cholesterol management. Her last cholesterol test in April 2024 showed an LDL of 123. 4. Chronic Kidney Disease The patient is advised to maintain hydration and avoid NSAIDs to manage chronic kidney disease. Recent labs showed normal renal function. 5. Osteopenia Osteopenia was noted from the last bone density test in December 2023. The patient is advised to continue monitoring bone health. 6. Hypokalemia The patient has low potassium levels at 2.6 and is advised to stop hydrochlorothiazide and monitor potassium levels. Discussion Notes I discussed with the patient the importance of stopping hydrochlorothiazide due to its impact on potassium levels and the need for regular monitoring. We also reviewed her current medications, including letrozole and ribociclib, and the importance of continuing follow-ups with hematology oncology. The patient was informed about the need to complete her pneumonia vaccination series and maintain hydration to support kidney function. Patient Instructions - Stop taking hydrochlorothiazide and monitor potassium levels regularly. - Continue taking letrozole and ribociclib as prescribed. - Maintain hydration and avoid NSAIDs to support kidney function. - Complete the pneumonia vaccination series. Orders: Orders Magnesium Today I10 - Essential (primary) hypertension XR chest 2V Today R05.9 - Cough, unspecified PFT pulmonary function test Today R05.9 - Cough, unspecified Complete Blood Count Auto Diff Today C50.911 - Malignant neoplasm of unspecified site of right female breast ECG 12 lead EKG Today E87.6 - Hypokalemia Medications: New benzonatate 200 mg PO BID-TID PRN 30 caps 1RF cough R05.9 - Cough, unspecified Refilled trazodone 100 mg (2 x 50 mg) PO BEDTIME PRN 180 tabs 3RF insomnia G47.00 - Insomnia, unspecified potassium chloride ER 20 mEq PO DAILY 60 tabs 0RF Discontinued hydrochlorothiazide Discontinued Reason: Doctor's Order 25 mg PO DAILY 90 tabs 2RF I10 - Essential (primary) hypertension
--- OUTSIDE RECORDS SUMMARY | 2024-11-09 11:08 | XMS_ITS | Encounter Summary ---
Author Organization [facility] Address [address] [place] [address] [place] [address] Phone Care Team Providers Care Manager Statistics Name Role Phone Precious Arzate MD Unavailable [phone] Lu Laws MD Unavailable Lena Malin RDCS Unavailable [email or web address] Lu Laws MD Primary Care Provider [phone] Encounter Details Date Type Department Care Team (Late st Contact Info) Description 01/20/2018 Ancillary Orders Virtual Department [address] [place] [address] Lu Laws MD [address] [place] [address] Abnormal mammogram Social History Tobacco Use Types Packs/Day Years Used Date Smoking Tobacco: Never Assessed Comments No Sex and Gender Information Value Date Recorded Sex Assigned at Not on file Legal Sex Female 10:05 PM EDT Gender Identity Not on file Sexual Orientation Not on file documented as of this encounter Plan of Treatment Not on file documented as of this encounter Results * BI US BREAST LIMITED (LEFT) (01/24/2018 10:29 AM EST) Anatomical Region Laterality Modality Breast Left, Breast Bilateral Left Ul trasound 01/24/2018 9:25 AM EST Impressions 01/24/2018 11:17 AM EST Area of slight increased density on MLO view persists but without worrisome features or sonographic correlate. This is probably fibroglandular tissue alone. Patient has had interval commencement of estrogen use which may account for this. A surveillance mammogram in six months is recommended. Finding and recommendation relayed to the patient at conclusion of sonography. BI-RADS CATEGORY: 3 - Probably benign finding. Short interval follow up suggested. LEFT RECOMMENDATION DUE DATE: 6 Months Short interval follow-up POS - [id number] Edited by: Michell Palmer on 01/24/2018 11:05 AM Narrative 01/24/2018 11:17 AM EST Additional views of the left breast are obtained to supplement screening examination of January 19, 2018. Comparison made to other prior as well. The additional views include full-field true lateral view with tomosynthesis, combo spot left MLO and CC views, and left breast ultrasound. An area of slightly increased density persists on the MLO view without discrete mass or distortion features on spot compression view. No clear correlate on spot compression CC view. On subsequent ultrasound scanning from 10 to 2 o'clock, no findings of concern are identified. Procedure Note Tylor Bright MD - 01/24/2018 Additional views of the left breast are obtained to supplement screeningexamination of January 19, 2018. Comparison made to other prior as well.The additional views include full-field true lateral view withtomosynthesis, combo spot left MLO and CC views, and left breastultrasound. An area of slightly increased density persists on the MLO view withoutdiscrete mass or distortion features on spot compression view. No clearcorrelate on spot compression CC view. On subsequent ultrasound scanningfrom 10 to 2 o'clock, no findings of concern are identified. IMPRESSION: Area of slight increased density on MLO view persists but withoutworrisome features or sonographic correlate. This is probablyfibroglandular tissue alone. Patient has had interval commencement ofestrogen use which may account for this. A surveillance mammogram in sixmonths is recommended. Finding and recommendation relayed to the patientat conclusion of sonography. BI-RADS CATEGORY: 3 - Probably benign finding. Short interval follow upsuggested. LEFT RECOMMENDATION DUE DATE: 6 Months Short interval follow-up POS - [id number] Edited by: Michell Palmer on 01/24/2018 11:05 AM Lu Laws MD [facility] US BREAST Final Result * BI MAMMOGRAM DIAGNOSTIC WITH TOMOSYNTHESIS WITH CAD (LEFT) (01/24/2018 9:23 AM EST) Anatomical Region Laterality Modality Breast Left Left Mammography 01/24/2018 9:25 AM EST Impressions 01/24/2018 11:17 AM EST Area of slight increased density on MLO view persists but without worrisome features or sonographic correlate. This is probably fibroglandular tissue alone. Patient has had interval commencement of estrogen use which may account for this. A surveillance mammogram in six months is recommended. Finding and recommendation relayed to the patient at conclusion of sonography. BI-RADS CATEGORY: 3 - Probably benign finding. Short interval follow up suggested. LEFT RECOMMENDATION DUE DATE: 6 Months Short interval follow-up POS - [id number] Edited by: Michell Palmer on 01/24/2018 11:05 AM Narrative 01/24/2018 11:17 AM EST Additional views of the left breast are obtained to supplement screening examination of January 19, 2018. Comparison made to other prior as well. The additional views include full-field true lateral view with tomosynthesis, combo spot left MLO and CC views, and left breast ultrasound. An area of slightly increased density persists on the MLO view without discrete mass or distortion features on spot compression view. No clear correlate on spot compression CC view. On subsequent ultrasound scanning from 10 to 2 o'clock, no findings of concern are identified. Procedure Note Tylor Bright MD - 01/24/2018 Additional views of the left breast are obtained to supplement screeningexamination of January 19, 2018. Comparison made to other prior as well.The additional views include full-field true lateral view withtomosynthesis, combo spot left MLO and CC views, and left breastultrasound. An area of slightly increased density persists on the MLO view withoutdiscrete mass or distortion features on spot compression view. No clearcorrelate on spot compression CC view. On subsequent ultrasound scanningfrom 10 to 2 o'clock, no findings of concern are identified. IMPRESSION: Area of slight increased density on MLO view persists but withoutworrisome features or sonographic correlate. This is probablyfibroglandular tissue alone. Patient has had interval commencement ofestrogen use which may account for this. A surveillance mammogram in sixmonths is recommended. Finding and recommendation relayed to the patientat conclusion of sonography. BI-RADS CATEGORY: 3 - Probably benign finding. Short interval follow upsuggested. LEFT RECOMMENDATION DUE DATE: 6 Months Short interval follow-up POS - [id number] Edited by: Michell Palmer on 01/24/2018 11:05 AM Lu Laws MD IMG MG EXAMS Final Result documented in this encounter Visit Diagnoses Diagnosis Abnormal mammogram Abnormal mammogram, unspecified Abnormal mammogram Abnormal mammogram, unspecified Abnormal mammogram Abnormal mammogram, unspecified documented in this encounter Care Teams Manager Statistics Relationship Specialty Start Date End Date Lu Laws MD [address] [place] [address] PCP - General 12/10/16 Precious Arzate MD [address] [place] [address], [facility] [address] [place] [address] Historical LMR Provider 12/09/16 03/01/21 Lu Laws MD [address] [place] [address] Historical LMR Provider 12/09/16 Lena Malin RDCS Historical LMR Provider 12/09/16 03/01/21 documented as of this encounter Additional Source Comments The information contained in this document represents components of the legal health record. It is not the complete legal health record.[facility]
--- OUTSIDE RECORDS SUMMARY | 2024-11-09 11:09 | XMS_ITS | Encounter Summary ---
Author Organization [facility] Address [address] [place] [address] [place] [address] Phone Care Team Providers Care Field Health Officer Name Role Phone Precious Arzate MD Unavailable [phone] Lu Laws MD Unavailable Lena Malin RDCS Unavailable [email or web address] Lu Laws MD Primary Care Provider [phone] Encounter Details Date Type Department Care Team (Late st Contact Info) Description 07/28/2018 Ancillary Orders Virtual Department [address] [place] [address] Lu Laws MD [address] [place] [address] Visit for screening mammogram Social History Tobacco Use Types Packs/Day [...] as of this encounter Results * BI MAMMOGRAM SCREENING WITH TOMOSYNTHESIS WITH CAD (BILATERAL) (01/20/2019 7:53 AM EST) Anatomical Region Laterality Modality Breast Left, Breast Right, Breast Bilateral Bila teral Mammography 01/20/2019 8:09 AM EST Impressions 01/20/2019 8:14 AM EST No findings suspicious for malignancy are identified. In the absence of a worrisome palpable abnormality, annual screening mammography is recommended. BI-RADS CATEGORY: 1 - Negative. DENSITY: The breast tissue is heterogeneously dense, an appearance which lowers the sensitivity of mammography. POS [id number] Narrative 01/20/2019 8:14 AM EST COMPARISON: 12/28/2012 through 08/08/2018 Bilateral 3-D tomosynthesis with 2-D reconstructions in the CC and MLO projection. Computer-aided detection system also utilized. No new mass, asymmetry, architectural distortion or suspicious calcifications have become apparent on either side. Procedure Note Karlos Freitas MD - 01/20/2019 COMPARISON: 12/28/2012 through 08/08/2018 Bilateral 3-D tomosynthesis with 2-D reconstructions in the CC and MLOprojection. Computer-aided detection system also utilized. No new mass, asymmetry, architectural distortion or suspiciouscalcifications have become apparent on either side. IMPRESSION: No findings suspicious for malignancy are identified. In the absence of aworrisome palpable abnormality, annual screening mammography isrecommended. BI-RADS CATEGORY: 1 - Negative. DENSITY: The breast tissue is heterogeneously dense, an appearance whichlowers the sensitivity of mammography. POS CDHMAM2 Lu Laws MD IMG MG EXAMS Final Result documented in this encounter Visit Diagnoses Diagnosis Visit for screening mammogram Visit for screening mammogram documented in this encounter Care Teams Field Health Officer Relationship Specialty Start Date End Date Lu Laws MD [address] [place] [id number] PCP - General 12/10/16 Precious Arzate MD [address] [place] [address], [address] [id number] [email or web address] Historical LMR Provider 12/09/16 03/01/21 Lu Laws MD NPI: [id number] [place] [id number] Historical LMR Provider 12/09/16 Lena Malin RDCS [email or web address] Historical LMR Provider 12/09/16 03/01/21 documented as of this encounter Additional Source Comments The information contained in this document represents components of the legal health record. It is not the complete legal health record.[facility]
--- OUTSIDE RECORDS SUMMARY | 2024-11-09 11:09 | XMS_ITS | Encounter Summary ---
Author Organization [facility] Address [address] [place] [address] Phone Care Team Providers Care Ios Software Engineer Name Role Phone Precious Arzate MD Unavailable [phone] Lu Laws MD Unavailable Lena Malin RDCS Unavailable [email or web address] Lu Laws MD Primary Care Provider [phone] Encounter Details Date Type Department Care Team (Late st Contact Info) Description 08/03/2018 Transcribe Orders Virtual Department [address] [place], [place] [id number] Lu Laws MD [address] [place] [address] Follow-up exam, 3-6 months since previous exam (Primary Dx) Social History Tobacco Use Types Packs/Day Years [...] of this encounter Results * BI MAMMOGRAM DIAGNOSTIC WITH TOMOSYNTHESIS WITH CAD (LEFT) (08/08/2018 8:19 AM EDT) Anatomical Region Laterality Modality Breast Left, Breast Bilateral Left Ma mmography 08/08/2018 8:27 AM EDT Impressions 08/08/2018 8:43 AM EDT LEFT BREAST: Pliable asymmetry in upper breast, stable from January 2018. Findings are probably benign. A five months follow-up mammogram is recommended in December 2017 (to coincide with the expected time of the contralateral breast screening). Bi-RADS: BI-RADS CATEGORY: 3 - Probably benign finding. Short interval follow up suggested. DENSITY: The breast tissue is heterogeneously dense, an appearance which lowers the sensitivity of mammography. LEFT RECOMMENDATION DUE DATE: 6 Months Short interval follow-up POS - [id number] Narrative 08/08/2018 8:43 AM EDT History: This is a six-month follow-up for asymmetry seen in the upper aspect of left breast on MLO view at 7.5 cm from the nipple without ultrasound correlate. STUDY: Unilateral left diagnostic mammography with tomosynthesis and CAD TECHNIQUE: Unilateral left full-field digital mammography is obtained and read in conjunction with computer-aided detection. Tomosynthesis as well as 2-D C view imaging were obtained. COMPARISON: Comparison made to multiple prior, most recent January 19, 2018, and most remote November 20, 2009. BREAST COMPOSITION: The breast is heterogeneously dense, which may obscure small masses. LEFT BREAST: Previously suggested asymmetry measuring approximately 1.2 cm in size in the upper breast on the MLO at 7.7 cm from the nipple is best appreciated on tomosynthesis full field MLO image 34/59. This asymmetry is pliable with the spot compression, and stable from January 2018. No new mammographic finding is seen. No significant calcifications are seen. Procedure Note Venkat Mc MD - 08/08/2018 History: This is a six-month follow-up for asymmetry seen in the upperaspect of left breast on MLO view at 7.5 cm from the nipple withoutultrasound correlate. STUDY: Unilateral left diagnostic mammography with tomosynthesis and CAD TECHNIQUE: Unilateral left full-field digital mammography is obtained andread in conjunction with computer-aided detection. Tomosynthesis as wellas 2-D C view imaging were obtained. COMPARISON: Comparison made to multiple prior, most recent December, and most remote November 20, 2009. BREAST COMPOSITION: The breast is heterogeneously dense, which may obscuresmall masses. LEFT BREAST: Previously suggested asymmetry measuring approximately 1.2 cmin size in the upper breast on the MLO at 7.7 cm from the nipple is bestappreciated on tomosynthesis full field MLO image 34/59. This asymmetry ispliable with the spot compression, and stable from January 2018.No new mammographic finding is seen. No significant calcifications areseen. IMPRESSION: LEFT BREAST: Pliable asymmetry in upper breast, stable fromJanuary 2018. Findings are probably benign. A five monthsfollow-up mammogram is recommended in December 2017 (to coincide with theexpected time of the contralateral breast screening). Bi-RADS: BI-RADS CATEGORY: 3 - Probably benign finding. Short intervalfollow up suggested. DENSITY: The breast tissue is heterogeneously dense, an appearance whichlowers the sensitivity of mammography. LEFT RECOMMENDATION DUE DATE: 6 Months Short interval follow-up POS - [id number] Lu Laws MD IMG MG EXAMS Final Result documented in this encounter Visit Diagnoses Diagnosis Follow-up exam, 3-6 months since previous exam- Primary Unspecified follow-up examination Follow-up exam, 3-6 months since previous exam Unspecified follow-up examination documented in this encounter Care Teams Ios Software Engineer Relationship Specialty Start Date End Date Lu Laws MD [address] [place] [address] PCP - General 12/10/16 Precious Arzate MD [address] [place] [address], [address] [place] [address] Historical LMR Provider 12/09/16 03/01/21 Lu Laws MD [address] [place] [address] Historical LMR Provider 12/09/16 Lena Malin RDCS Historical LMR Provider 12/09/16 03/01/21 documented as of this encounter Additional Source Comments The information contained in this document represents components of the legal health record. It is not the complete legal health record.[facility]
--- OUTSIDE RECORDS SUMMARY | 2024-11-09 11:09 | XMS_ITS | Encounter Summary ---
Author Organization [facility] Address [address] [facility] [address] [place] [address] Phone Care Team Providers Care Impress Associate Name Role Phone Lu Laws MD Unavailable Lu Laws MD Primary Care Provider Encounter Details Date Type Department Care Team (Late st Contact Info) Description 01/08/2022 Procedure Pass [address] [address] Social History Tobacco Use Types Packs/Day Years Used Date Smoking Tobacco: Never Smokeless Tobacco: Never Comments No Sex and Gender Information Value Date Recorded Sex Assigned at Not on file Legal Sex Female 10:05 PM EDT Gender Identity Not on file Sexual Orientation Not on file documented as of this encounter Plan of Treatment Not on file documented as of this encounter Visit Diagnoses Not on filedocumented in this encounter Care Teams Impress Associate Relationship Specialty Start Date End Date Lu Laws MD [address] [place] [address] PCP - General 12/10/16 Lu Laws MD [address] [place] [address] Historical LMR Provider 12/09/16 documented as of this encounter Additional Source Comments The information contained in this document represents components of the legal health record. It is not the complete legal health record.[facility]
--- OUTSIDE RECORDS SUMMARY | 2024-11-09 11:10 | XMS_ITS | Encounter Summary ---
Author Organization [facility] Address [address] [place] [address] Phone Care Team Providers Care Rock Climbing Team Member Name Role Phone Lu Laws MD Unavailable Lu Laws MD Primary Care Provider [phone] Encounter Details Date Type Department Care Team (Late st Contact Info) Description 03/31/2022 Transcribe Orders Virtual Department 30 [place] [address] Lu Laws MD [address] [place] [address] Abnormal mammogram of right breast (Primary Dx) Social History Tobacco Use Types [...] encounter Results * BI US BREAST LIMITED (RIGHT) (05/21/2022 9:41 AM EDT) Anatomical Region Laterality Modality Breast Right, Breast Bilateral Right U ltrasound 05/21/2022 9:51 AM EDT Impressions 05/21/2022 9:55 AM EDT 1. Additional views and ultrasound of the right breast suggest that the asymmetry seen in the 12:00 region of the breast is likely normal fibroglandular tissue. A six-month follow-up right mammogram is recommended to confirm that no worrisome findings develop in this area. 2. No new worrisome findings are identified in the right breast on today's images. The findings and recommendation were relayed to the patient. BI-RADS CATEGORY: 3 - Probably benign finding. Short interval follow up suggested. RIGHT RECOMMENDATION DUE DATE: 6 Months Right short interval follow-up Narrative 05/21/2022 9:55 AM EDT Right mammogram additional views and ultrasound: Spot magnified MLO and 3-D spot MLO, true lateral and exaggerated cc views of the right breast are compared to the screening study from 03/27/2022 and prior studies. The asymmetry seen in the deep 12:00 breast associated with a few punctate calcifications is changeable among the various views. The calcifications are stable for several years. Directed ultrasound shows no cystic or solid mass or other corresponding finding in the area of interest. [facility] Eusebia ANDRADE IMG US BREAST Final Result * BI MAMMOGRAM DIAGNOSTIC WITH TOMOSYNTHESIS WITH CAD (RIGHT) (05/21/2022 9:03 AM EDT) Anatomical Region Laterality Modality Breast Right, Breast Bilateral Right M ammography 05/21/2022 9:51 AM EDT Impressions 05/21/2022 9:55 AM EDT 1. Additional views and ultrasound of the right breast suggest that the asymmetry seen in the 12:00 region of the breast is likely normal fibroglandular tissue. A six-month follow-up right mammogram is recommended to confirm that no worrisome findings develop in this area. 2. No new worrisome findings are identified in the right breast on today's images. The findings and recommendation were relayed to the patient. BI-RADS CATEGORY: 3 - Probably benign finding. Short interval follow up suggested. RIGHT RECOMMENDATION DUE DATE: 6 Months Right short interval follow-up Narrative 05/21/2022 9:55 AM EDT Right mammogram additional views and ultrasound: Spot magnified MLO and 3-D spot MLO, true lateral and exaggerated cc views of the right breast are compared to the screening study from 03/27/2022 and prior studies. The asymmetry seen in the deep 12:00 breast associated with a few punctate calcifications is changeable among the various views. The calcifications are stable for several years. Directed ultrasound shows no cystic or solid mass or other corresponding finding in the area of interest. Procedure Note Karlos Freitas MD - 05/21/2022 Right mammogram additional views and ultrasound: Spot magnified MLO and 3-D spot MLO, true lateral and exaggerated cc viewsof the right breast are compared to the screening study from 03/27/2022 andprior studies. The asymmetry seen in the deep 12:00 breast associated with a few punctatecalcifications is changeable among the various views. The calcificationsare stable for several years. Directed ultrasound shows no cystic or solid mass or other correspondingfinding in the area of interest. IMPRESSION: 1. Additional views and ultrasound of the right breast suggest that theasymmetry seen in the 12:00 region of the breast is likely normalfibroglandular tissue. A six-month follow-up right mammogram is recommended to confirm that noworrisome findings develop in this area. 2. No new worrisome findings are identified in the right breast on today'simages. The findings and recommendation were relayed to the patient. BI-RADS CATEGORY: 3 - Probably benign finding. Short interval follow upsuggested. RIGHT RECOMMENDATION DUE DATE: 6 Months Right short interval follow-up Lu Laws MD IMG MG EXAMS Final Result documented in this encounter Visit Diagnoses Diagnosis Abnormal mammogram of right breast- Primary Abnormal mammogram of right breast Abnormal mammogram of right breast documented in this encounter Care Teams Rock Climbing Team Member Relationship Specialty Start Date End Date Lu Laws MD [address] [place] [address] PCP - General 12/10/16 Lu Laws MD [address] [place] [address] Historical LMR Provider 12/09/16 documented as of this encounter Additional Source Comments The information contained in this document represents components of the legal health record. It is not the complete legal health record.[facility]
--- OUTSIDE RECORDS SUMMARY | 2024-11-09 11:10 | XMS_ITS | Encounter Summary ---
Author Organization [facility] Address [address] [facility] [address] [place] [address] Phone Care Team Providers Care Bread Oven Operator Name Role Phone Lu Laws MD Unavailable Lu Laws MD Primary Care Provider [phone] Encounter Details Date Type Department Care Team (Late st Contact Info) Description 03/31/2022 Procedure Pass [address] [address] Social History Tobacco Use Types Packs/Day Years [...] on filedocumented in this encounter Care Teams Bread Oven Operator Relationship Specialty Start Date End Date Lu Laws MD [address] [place] [address] PCP - General 12/10/16 Lu Laws MD [address] [place] [address] Historical LMR Provider 12/09/16 documented as of this encounter Additional Source Comments The information contained in this document represents components of the legal health record. It is not the complete legal health record.[facility]
--- OUTSIDE RECORDS SUMMARY | 2024-11-09 11:10 | XMS_ITS | Encounter Summary ---
Author Organization [facility] Address [address] [place] [address] Phone Care Team Providers Care Scarifier Operator Name Role Phone Precious Arzate MD Unavailable [phone] Lu Laws MD Unavailable Lena Malin RDCS Unavailable [email or web address] Lu Laws MD Primary Care Provider [phone] Encounter Details Date Type Department Care Team (Late st Contact Info) Description 11/13/2019 Ancillary Orders Virtual Department [address] [place] [address] Lu Laws MD [address] [place] [address] Abnormal mammogram Social History Tobacco Use Types [...] MAMMOGRAM SCREENING WITH TOMOSYNTHESIS WITH CAD (BILATERAL) (01/23/2020 7:39 AM EST) Anatomical Region Laterality Modality Breast Left, Breast Right, Breast Bilateral Bila teral Mammography 01/23/2020 8:13 AM EST Impressions 01/23/2020 8:17 AM EST No mammographic signs of malignancy. Annual screening is recommended. BI-RADS CATEGORY: 1 - Negative. DENSITY: The breast tissue is heterogeneously dense, which could obscure a lesion on mammography. Narrative 01/23/2020 8:17 AM EST Bilateral mammography is performed in conjunction with computed aided detection. 3-D tomography along with 2-D C view imaging was also performed. Comparison made to previous dated as far back as 01/03/2014 and as recent as 01/20/2019. No suspicious masses, areas of architectural distortion or suspicious microcalcifications. Procedure Note Gerardo Botello MD - 01/23/2020 Bilateral mammography is performed in conjunction with computed aideddetection. 3-D tomography along with 2-D C view imaging was alsoperformed. Comparison made to previous dated as far back as 01/03/2014 andas recent as 01/20/2019. No suspicious masses, areas of architectural distortion or suspiciousmicrocalcifications. IMPRESSION: No mammographic signs of malignancy. Annual screening is recommended. BI-RADS CATEGORY: 1 - Negative. DENSITY: The breast tissue is heterogeneously dense, which could obscurea lesion on mammography. Lu Laws MD IM MG EXAMS Final Result documented in this encounter Visit Diagnoses Diagnosis Abnormal mammogram Abnormal mammogram, unspecified Abnormal mammogram Abnormal mammogram, unspecified documented in this encounter Care Teams Scarifier Operator Relationship Specialty Start Date End Date Lu Laws MD [address] [place] [address] PCP - General 12/10/16 Precious Arzate MD [address] [place] [address], [address] [place] [address] Historical LMR Provider 12/09/16 03/01/21 Lu Laws MD [address] [place] [address] Historical LMR Provider 12/09/16 Lena Malin, RDCS [email or web address] Historical LMR Provider 12/09/16 03/01/21 documented as of this encounter Additional Source Comments The information contained in this document represents components of the legal health record. It is not the complete legal health record.[facility]
--- OUTSIDE RECORDS SUMMARY | 2024-11-09 11:11 | XMS_ITS | Encounter Summary ---
Author Organization [facility] Address [address] [place] [address] Phone Care Team Providers Care Mmi Teacher Name Role Phone Precious Arzate MD Unavailable [phone] Lu Laws MD Unavailable Lena Malin RDCS Unavailable [email or web address] Lu Laws MD Primary Care Provider [phone] Encounter Details Date Type Department Care Team (Late st Contact Info) Description 10/27/2017 Ancillary Orders Virtual Department [address] [place] [address] Lu Laws MD [address] [place] [address] Breast screening Social History Tobacco Use Types Packs/Day Years Used Date Smoking Tobacco: Never Assessed Comments No Sex and Gender Information Value Date Recorded Sex Assigned at Not on file Legal Sex Female 10:05 PM EDT Gender Identity Not on file Sexual Orientation Not on file documented as of this encounter Plan of Treatment Not on file documented as of this encounter Results * (ABNORMAL) BI MAMMOGRAM SCREENING WITH TOMOSYNTHESIS WITH CAD (BILATERAL) (01/19/2018 7:40 AM EST) Anatomical Region Laterality Modality Breast Left, Breast Right, Breast Bilateral Bila teral Mammography 01/19/2018 8:42 AM EST Impressions 01/19/2018 9:22 AM EST Incomplete study, BI-RADS 0. Asymmetry in the superior left breast. Additional imaging recommended: ML with doreen, spot compression with doreen in CC and ML projections, and ultrasound. RECOMMENDED FOLLOWUP: Additional imaging. Patient will be recalled for additional imaging. BI-RADS CATEGORY: 0 - Incomplete. Need additional imaging evaluation. BREAST DENSITY: The breast tissue is heterogeneously dense, an appearance which lowers the sensitivity of mammography. LEFT RECOMMENDATION DATE: 1 Month Additional Imaging RIGHT RECOMMENDATION DATE: Annual Mammography Screening POS - [id number] Narrative 01/19/2018 9:22 AM EST BI MAMMOGRAM SCREENING WITH TOMOSYNTHESIS WITH CAD (BILATERAL) HISTORY: Screening. COMPARISON: Prior studies dating back to 2011, most recently 01/13/2017. TECHNIQUE: Digital breast tomosynthesis was performed in CC and MLO projections. Reconstructed 2-D C-views generated from the tomosynthesis images. Images interpreted in conjunction with R-2 Image Business Change Manager computer-aided detection (CAD). FINDINGS: BREAST DENSITY: The breast parenchyma is heterogeneously dense, which may lower the sensitivity of mammography. In the left breast, on the MLO view, there is a nodular asymmetry in the superior left breast at posterior depth, 7.5 cm from the nipple. No exact correlate identified on the left CC view. The MLO tomosynthesis images show it would be central. There are no suspicious clustered microcalcifications or suspicious areas of architectural distortion. Procedure Note Shirley Díaz MD - 01/19/2018 BI MAMMOGRAM SCREENING WITH TOMOSYNTHESIS WITH CAD (BILATERAL) HISTORY: Screening. COMPARISON: Prior studies dating back to 2011, most recently 01/13/2017. TECHNIQUE: Digital breast tomosynthesis was performed in CC and MLOprojections. Reconstructed 2-D C-views generated from the tomosynthesisimages. Images interpreted in conjunction with R-2 Image Checkercomputer-aided detection (CAD). FINDINGS: BREAST DENSITY: The breast parenchyma is heterogeneously dense, which maylower the sensitivity of mammography. In the left breast, on the MLO view, there is a nodular asymmetry in thesuperior left breast at posterior depth, 7.5 cm from the nipple. No exactcorrelate identified on the left CC view. The MLO tomosynthesis imagesshow it would be central. There are no suspicious clustered microcalcifications or suspicious areasof architectural distortion. IMPRESSION: Incomplete study, BI-RADS 0. Asymmetry in the superior left breast. Additional imaging recommended: ML with doreen, spot compression with tomoin CC and ML projections, and ultrasound. RECOMMENDED FOLLOWUP: Additional imaging. Patient will be recalled for additional imaging. BI-RADS CATEGORY: 0 - Incomplete. Need additional imaging evaluation. BREAST DENSITY: The breast tissue is heterogeneously dense, an appearancewhich lowers the sensitivity of mammography. LEFT RECOMMENDATION DATE: 1 Month Additional Imaging RIGHT RECOMMENDATION DATE: Annual Mammography Screening POS - [id number] Lu Laws MD IMG MG EXAMS Final Result documented in this encounter Visit Diagnoses Diagnosis Breast screening Breast screening, unspecified Breast screening Breast screening, unspecified documented in this encounter Care Teams Mmi Teacher Relationship Specialty Start Date End Date Lu Laws MD [address] [place] [address] PCP - General 12/10/16 Precious Arzate MD [address] [place] [address], [facility] [address] [place] [address] Historical LMR Provider 12/09/16 03/01/21 Lu Laws MD [address] [place] [address] Historical LMR Provider 12/09/16 Lena Malin, PABLO Historical LMR Provider 12/09/16 03/01/21 documented as of this encounter Additional Source Comments The information contained in this document represents components of the legal health record. It is not the complete legal health record.[facility]
--- OUTSIDE RECORDS SUMMARY | 2024-11-09 11:11 | XMS_ITS | Encounter Summary ---
Author Organization [facility] Address [address] [place] [address] Phone Care Team Providers Care Golf Caddie Name Role Phone Precious Arzate MD Unavailable [phone] Lu Laws MD Unavailable Lena Malin RDCS Unavailable [email or web address] Lu Laws MD Primary Care Provider [phone] Encounter Details Date Type Department Care Team (Late st Contact Info) Description 12/12/2016 Ancillary Orders [facility], X-Ray - [address] [address] Lu Laws MD [address] [place] [address] Visit for screening mammogram Social History Tobacco Use Types Packs/Day Years Used Date Smoking Tobacco: Never Assessed Comments Unknown Sex and Gender Information Value Date Recorded Sex Assigned at Not on file Legal Sex Female 10:05 PM EDT Gender Identity Not on file Sexual Orientation Not on file documented as of this encounter Plan of Treatment Not on file documented as of this encounter Results * BI MAMMOGRAM SCREENING WITH TOMOSYNTHESIS WITH CAD (BILATERAL) (01/13/2017 7:42 AM EST) Anatomical Region Laterality Modality Breast Left, Breast Right, Breast Bilateral Bila teral Mammography 01/13/2017 4:32 PM EST Impressions 01/13/2017 4:36 PM EST No mammographic change indicative of malignancy. Routine screening is recommended. BI-RADS CATEGORY: 1 - Negative. DENSITY: The breast tissue is heterogeneously dense, an appearance which lowers the sensitivity of mammography. POS - [id number] Narrative 01/13/2017 4:36 PM EST FINDINGS: Bilateral full-field digital screening mammography is obtained and read in conjunction with computer-aided detection. 3-D tomosynthesis as well as 2-D C view imaging is also performed. Comparison includes the most recent exam from 01/13/2016 and as far back as 11/27/2010. Breasts are composed of heterogeneously dense fibroglandular tissue which limits mammographic sensitivity. No new dominant mass, suspicious microcalcifications, architectural distortion, focal skin thickening, or new asymmetry is detected. Procedure Note Aba Schultz MD - 01/13/2017 FINDINGS: Bilateral full-field digital screening mammography is obtained and read inconjunction with computer-aided detection. 3-D tomosynthesis as well as2-D C view imaging is also performed. Comparison includes the most recentexam from 01/13/2016 and as far back as 11/27/2010. Breasts are composed of heterogeneously dense fibroglandular tissue whichlimits mammographic sensitivity. No new dominant mass, suspiciousmicrocalcifications, architectural distortion, focal skin thickening, ornew asymmetry is detected. IMPRESSION: No mammographic change indicative of malignancy. Routine screening isrecommended. BI-RADS CATEGORY: 1 - Negative. DENSITY: The breast tissue is heterogeneously dense, an appearance whichlowers the sensitivity of mammography. POS - [id number] Lu Laws MD IMG MG EXAMS Final Result documented in this encounter Visit Diagnoses Diagnosis Visit for screening mammogram Visit for screening mammogram documented in this encounter Care Teams Golf Caddie Relationship Specialty Start Date End Date Lu Laws MD [address] [place] [address] PCP - General 12/10/16 Precious Arzate MD [address] [place] [address], [address] [place] [address] [email or web address] Historical LMR Provider 12/09/16 03/01/21 Lu Laws MD [address] [place] [address] Historical LMR Provider 12/09/16 Lena Malin, PABLO [email or web address] Historical LMR Provider 12/09/16 03/01/21 documented as of this encounter Additional Source Comments The information contained in this document represents components of the legal health record. It is not the complete legal health record.[facility]
--- OUTSIDE RECORDS SUMMARY | 2024-11-09 11:11 | XMS_ITS | Encounter Summary ---
Author Organization [facility] Address [address] [place] [address] [place] [address] Phone Care Team Providers Care Hide Salter Name Role Phone Precious Arzate MD Unavailable [phone] Lu Laws MD Unavailable Lena Malin RDCS Unavailable [email or web address] Lu Laws MD Primary Care Provider [phone] Encounter Details Date Type Department Care Team (Late st Contact Info) Description 01/06/2021 Procedure Pass [facility], Ct Scan - [address] [address] Social History Tobacco Use Types Packs/Day Years [...] on filedocumented in this encounter Care Teams Hide Salter Relationship Specialty Start Date End Date Lu Laws MD [address] [place] [address] PCP - General 12/10/16 Precious Arzate MD 22 [facility], [address] [place] [address] Historical LMR Provider 12/09/16 03/01/21 Lu Laws MD [address] [place] [address] Historical LMR Provider 12/09/16 Lena Malin, PABLO [email or web address] Historical LMR Provider 12/09/16 03/01/21 documented as of this encounter Additional Source Comments The information contained in this document represents components of the legal health record. It is not the complete legal health record.[facility]
--- OUTSIDE RECORDS SUMMARY | 2024-11-09 11:11 | XMS_ITS | Encounter Summary ---
Author Organization [facility] Address [address] [place] [address] [place] [address] Phone Care Team Providers Care Pilot Plant Technician Name Role Phone Precious Arzate MD Unavailable [phone] Lu Laws MD Unavailable Lena Malin RDCS Unavailable [email or web address] Lu Laws MD Primary Care Provider [phone] Encounter Details Date Type Department Care Team (Late st Contact Info) Description 11/13/2019 Procedure Pass [facility], [address] [address] Social History Tobacco Use Types Packs/Day Years [...] on filedocumented in this encounter Care Teams Pilot Plant Technician Relationship Specialty Start Date End Date Lu Laws MD 4 [place] [address] PCP - General 12/10/16 Precious Arzate MD [address] [place] [address], [facility] [address] [place] [address] Historical LMR Provider 12/09/16 03/01/21 Lu Laws MD [address] [place] [address] Historical LMR Provider 12/09/16 Lena Malin RDCS [email or web address] Historical LMR Provider 12/09/16 03/01/21 documented as of this encounter Additional Source Comments The information contained in this document represents components of the legal health record. It is not the complete legal health record.[facility]
--- OUTSIDE RECORDS SUMMARY | 2024-11-09 11:11 | XMS_ITS | Encounter Summary ---
Author Organization [facility] Address [address] [place] [address] [place] [address] Phone Care Team Providers Care Retail Warehouse Associate Name Role Phone Precious Arzate MD Unavailable [phone] Lu Laws MD Unavailable Lena Malin RDCS Unavailable [email or web address] Lu Laws MD Primary Care Provider [phone] Encounter Details Date Type Department Care Team (Late st Contact Info) Description 10/29/2020 Procedure Pass [facility], [address] [address] Social History Tobacco Use Types Packs/Day Years [...] on filedocumented in this encounter Care Teams Retail Warehouse Associate Relationship Specialty Start Date End Date Lu Laws MD [address] [place] [address] PCP - General 12/10/16 Precious Arzate MD 22 [facility], [address] [place] [address] Historical LMR Provider 12/09/16 03/01/21 Lu Laws MD [address] [place] [address] Historical LMR Provider 12/09/16 Lena Malin, PABLO [email or web address] Historical LMR Provider 12/09/16 03/01/21 documented as of this encounter Additional Source Comments The information contained in this document represents components of the legal health record. It is not the complete legal health record.[facility]
--- OUTSIDE RECORDS SUMMARY | 2024-11-09 11:11 | XMS_ITS | Encounter Summary ---
Author Organization [facility] Address [address] [place] [address] Phone Care Team Providers Care Customer Service Associate Name Role Phone Precious Arzate MD Unavailable [phone] Lu Laws MD Unavailable Lena Malin RD Unavailable [email or web address] Lu Laws MD Primary Care Provider [phone] Reason for Referral * Physical Therapy (Routine) - Closed Specialty Diagnoses / Procedures Referred By Contgonzalo t Referred To Contact Physical Therapy Diagnoses Encounter for rehabilitation [facility] [address] [place] [address] [place] [address] Phone: tel: fax: [address] [address] Phone: tel: Referral ID Status Reason Start Date Expiration Date Visits Re quested Visits Authorized [id number] Closed 08/31/2017 02/21/2018 99 [phone] Encounter Details Date Type Department Care Team (Latest Contact Info) Description 08/31/2017 Transcribe Orders [facility] [address] [place] [address] Daria Ramírez MD [address] [place] [address] Encounter for rehabilitation (Primary Dx) Social History Tobacco Use Types Packs/Day Years Used Date Smoking Tobacco: Never Assessed Comments No Sex and Gender Information Value Date Recorded Sex Assigned at Not on file Legal Sex Female 10:05 PM EDT Gender Identity Not on file Sexual Orientation Not on file documented as of this encounter Plan of Treatment Scheduled Referrals Name Type Priority Associated Diagnoses Orde r Schedule Ambulatory referral to [facility] Physical Therapy Outpatient Referral Routine Encounter for rehabilitation Ordered: 08/31/2017 documented as of this encounter Visit Diagnoses Diagnosis Encounter for rehabilitation- Primary documented in this encounter Care Teams Customer Service Associate Relationship Specialty Start Date End Date Lu Laws MD 4 [place] [address] PCP - General 12/10/16 Precious Arzate MD [address] [place] [address] [address] [place] [address] Historical LMR Provider 12/09/16 03/01/21 Lu Laws MD [address] [place] [address] Historical LMR Provider 12/09/16 Lena Malin RDCS Historical LMR Provider 12/09/16 03/01/21 documented as of this encounter Additional Source Comments The information contained in this document represents components of the legal health record. It is not the complete legal health record.[facility]
--- OUTSIDE RECORDS SUMMARY | 2024-11-09 11:11 | XMS_ITS | Encounter Summary ---
Author Organization [facility] Address [address] [place] [address] Phone Care Team Providers Care Hat Block Maker Name Role Phone Lu Laws MD Unavailable Lu Laws MD Primary Care Provider [phone] Encounter Details Date Type Department Care Team (Latest Contact Info) Description 09/23/2023 Transcribe Orders Virtual Department [address] [place] [address] Self-Referred, Patient Breast screening (Primary Dx) Social History Tobacco Use Types Packs/Day Years Used Date Smoking Tobacco: Never Smokeless Tobacco: Never Education Answer Date Recorded Are you interested in more education? Not on jesus e 06/19/2022 Are you concerned about learning? Not on file 06/19/2022 No 06/19/2022 No 06/19/2022 Digital Access Answer Date Recorded No 07/20/2022 No 07/20/2022 Reliable internet access at home? Not on file 07/20/2022 Device with a working camera? Not on file Comments No Sex and Gender Information Value Date Recorded Sex Assigned at Not on file Legal Sex Female 10:05 PM EDT Gender Identity Not on file Sexual Orientation Not on file documented as of this encounter Plan of Treatment Not on file documented as of this encounter Visit Diagnoses Diagnosis Breast screening- Primary Breast screening, unspecified documented in this encounter Care Teams Hat Block Maker Relationship Specialty Start Date End Date Lu Laws MD [address] [place] [address] PCP - General 12/10/16 Lu Laws MD 4 [place] [address] Historical LMR Provider 12/09/16 documented as of this encounter Additional Source Comments The information contained in this document represents components of the legal health record. It is not the complete legal health record.[facility]
--- OUTSIDE RECORDS SUMMARY | 2024-11-09 11:11 | XMS_ITS | Encounter Summary ---
Author Organization [facility] Address [address] [place] [address] [place] [address] Phone Care Team Providers Care Astronomy Professor Name Role Phone Precious Arzate MD Unavailable [phone] Lu Laws MD Unavailable Lena Malin RDCS Unavailable [email or web address] Lu Laws MD Primary Care Provider [phone] Encounter Details Date Type Department Care Team (Late st Contact Info) Description 10/29/2020 Ancillary Orders Virtual Department [address] [place] [address] Lu Laws MD [address] [place] [address] Breast screening Social History Tobacco Use Types [...] MAMMOGRAM SCREENING WITH TOMOSYNTHESIS WITH CAD (BILATERAL) (03/25/2021 8:15 AM EST) Anatomical Region Laterality Modality Breast Left, Breast Right, Breast Bilateral Bila teral Mammography 03/25/2021 9:45 AM EST Impressions 03/25/2021 9:50 AM EST No findings suspicious for malignancy are identified. In the absence of a worrisome palpable abnormality, annual screening mammography is recommended. BI-RADS CATEGORY: 1 - Negative. DENSITY: The breast tissue is heterogeneously dense, which could obscure a lesion on mammography. Narrative 03/25/2021 9:50 AM EST COMPARISON: 01/09/2015 through 01/23/2020 Bilateral 3-D tomosynthesis with 2-D reconstructions in the CC and MLO projection. Computer-aided detection system was utilized. No new mass, asymmetry, architectural distortion or suspicious calcifications have become apparent on either side. Procedure Note Karlos Freitas MD - 03/25/2021 COMPARISON: 01/09/2015 through 01/23/2020 Bilateral 3-D tomosynthesis with 2-D reconstructions in the CC and MLOprojection. Computer-aided detection system was utilized. No new mass, asymmetry, architectural distortion or suspiciouscalcifications have become apparent on either side. IMPRESSION: No findings suspicious for malignancy are identified. In the absence of aworrisome palpable abnormality, annual screening mammography isrecommended. BI-RADS CATEGORY: 1 - Negative. DENSITY: The breast tissue is heterogeneously dense, which could obscurea lesion on mammography. Lu Laws MD IMG MG EXAMS Final Result documented in this encounter Visit Diagnoses Diagnosis Breast screening Breast screening, unspecified Breast screening Breast screening, unspecified documented in this encounter Care Teams Astronomy Professor Relationship Specialty Start Date End Date Lu Laws MD [address] [place] [address] PCP - General 12/10/16 Precious Arzate MD [address] [place] [address] Historical LMR Provider 12/09/16 03/01/21 Lu Laws MD [address] [place] [address] Historical LMR Provider 12/09/16 Lena Malin RDCS [email or web address] Historical LMR Provider 12/09/16 03/01/21 documented as of this encounter Additional Source Comments The information contained in this document represents components of the legal health record. It is not the complete legal health record.[facility]
--- OUTSIDE RECORDS SUMMARY | 2024-11-09 11:11 | XMS_ITS | Encounter Summary ---
Author Organization [facility] Address [address] [place] [address] Phone Care Team Providers Care Library Attendant Name Role Phone Precious Arzate MD Unavailable Lu Laws MD Unavailable Lena Malin RD Unavailable [email or web address] Lu Laws MD Primary Care Provider [phone] Encounter Details Date Type Department Care Team (Late st Contact Info) Description 01/20/2021 Ancillary Orders [facility],Outside Imaging [address] [place] [address] System, Provider Not In, PhD [address] [address] Social History Tobacco Use Types Packs/Day Years Used Date Smoking Tobacco: Never Assessed Comments No Sex and Gender Information Value Date Recorded Sex Assigned at Not on file Legal Sex Female 10:05 PM EDT Gender Identity Not on file Sexual Orientation Not on file documented as of this encounter Plan of Treatment Not on file documented as of this encounter Results * XR Lower Extremity Outside (No Interpretation) (01/20/2021 5:38 PM EST) Narrative SYSTEMGENERATED, DOCUMENTATION - 01/20/2021 5:38 PM EST This study is for PACS storage only and not for interpretation. us Provider Not In System PhD IMG OUTSIDE IMAGING W /OUT INTERPRETATION Final Result documented in this encounter Visit Diagnoses Not on filedocumented in this encounter Care Teams Library Attendant Relationship Specialty Start Date End Date Lu Laws MD 4 [place] [address] PCP - General 12/10/16 Precious Arzate MD [address] [place] [address], [facility] [address] [place] [address] [email or web address] Historical LMR Provider 12/09/16 03/01/21 Lu Laws MD [address] [place] [address] Historical LMR Provider 12/09/16 Lena Malin, DONICS Historical LMR Provider 12/09/16 03/01/21 documented as of this encounter Additional Source Comments The information contained in this document represents components of the legal health record. It is not the complete legal health record.[facility]
--- OUTSIDE RECORDS SUMMARY | 2024-11-09 11:11 | XMS_ITS ---
Author Name [facility] Organization Unknown Care Team Organization Name Specialty Phone Email Start Date End Da [facility] Laws Primary Care 12/30/2021 10/11/2023
--- OUTSIDE RECORDS SUMMARY | 2024-11-09 11:11 | XMS_ITS | Encounter Summary ---
Author Organization [facility] Address [address] [place] [address] [place] [address] Phone Care Team Providers Care Guest Experience Captain Name Role Phone Preciuos Arzate MD Unavailable [phone] Lu Laws MD Unavailable Lena Malin RDCS Unavailable [email or web address] Lu Laws MD Primary Care Provider [phone] Encounter Details Date Type Department Care Team (Late st Contact Info) Description 01/06/2021 Procedure Pass [facility], Ct Scan - [address] [address] Social History Tobacco Use Types Packs/Day Years [...] on filedocumented in this encounter Care Teams Guest Experience Captain Relationship Specialty Start Date End Date Lu Laws MD 4 [place] [address] PCP - General 12/10/16 Precious Arzate MD 22 [facility], [address] [place] [address] Historical LMR Provider 12/09/16 03/01/21 Lu Laws MD [address] [place] [address] Historical LMR Provider 12/09/16 Lena Malin, PABLO [email or web address] Historical LMR Provider 12/09/16 03/01/21 documented as of this encounter Additional Source Comments The information contained in this document represents components of the legal health record. It is not the complete legal health record.[facility]
--- OUTSIDE RECORDS SUMMARY | 2024-11-09 11:11 | XMS_ITS | Clinical Summary ---
Author Organization [facility] Address [address] [address] Phone Care Team Providers Care Citrus Picker Name Role Phone Lu Laws MD Unavailable Lu Laws MD Primary Care Provider [phone] Allergies Active Allergy Reactions Criticality Noted Date Comments Penicillin Swelling,Hives 12/20/2014 Penicillin G Benzathin,Procain 09/13 Medications amLODIPine (NORVASC) 5 MG tablet 1 Active atorvastatin (LIPITOR) 20 MG tablet 1 Active hydroCHLOROthia zide (HYDRODIURIL) 25 MG tablet 1 Active estradioL (ESTRACE) 0.01 % (0.1 mg/gram) vaginal cream Place 2 g vaginally daily. Active traZODone (DESYREL) 50 MG tablet 1 Active Immunizations Immunization Administration Dates Next Due Tdap 01/06/2021 Family History Medical History Relation Comments Breast cancer Neg Hx Social History Tobacco Use Types Packs/Day Years Used Date Smoking Tobacco: Never Smokeless Tobacco: Never Tobacco Cessation:Counseling Given: Not Answered Education Answer Date Recorded Are you interested [...] on file Sexual Orientation Not on file Last Filed Vital Signs Vital Sign Reading Time Taken Comments Blood Pressure 118/73 01/06/2021 4:35 PM EST Pulse 79 01/06/2021 4:38 PM EST Temperature - - Respiratory Rate 30 01/06/2021 4:38 PM EST Oxygen Saturation 99% 01/06/2021 4:35 PM EST Inhaled Oxygen Concentration - - Weight 51.8 kg (114 lb 3.2 oz) 12/20/2014 8:49 A M EDT Height 149.9 cm (4' 11 ) 12/20/2014 8:49 AM EDT Body Mass Index 23.07 12/20/2014 8:49 AM EDT Plan of Treatment Health Maintenance Due Date Last Done Comments LIPID PANEL 1947 POTASSIUM LEVEL 1947 DEPRESSION SCREENING 1959 HEPATITIS C SCREENING 08/20/1965 ZOSTER VACCINES (2 of 3) 09/16/2011 07/22/2011 OSTEOPOROSIS SCREENING INITIAL (ONE-TIME) 08/20/2012 RSV VACCINE (1 - 1-dose 75+ series) 08/20/2022 INFLUENZA VACCINE (#1) 2024 COVID-19 VACCINE (2 - 2024- season) 2024 05/09/2020 Adult Td,Tdap Booster 01/06/2031 01/06/2021 , 08/03/2012, 02/16/2008, Additional history exists PNEUMOCOCCAL VACCINES (50+ years) Completed 08/09/2015, 08/04/2013 SMOKING STATUS SCREENING (Once After 26 Yrs) Completed 05/21/2022 HEPATITIS A VACCINES Aged Out No long er eligible based on patient's age to complete this topic HIB VACCINES Aged Out No longer eligi ble based on patient's age to complete this topic MENINGOCOCCAL VACCINES (ACWY) Aged Out No longer eligible based on patient's age to complete this topic MENINGOCOCCAL VACCINES (B) Aged Out N o longer eligible based on patient's age to complete this topic Medical Devices Not on file Insurance MEDICARE PART A & B [employer] MED[employer] SUPPLEMENT MEDICARE PART A & B [employer] SUPPLEMENT MEDICARE PART A & B Member Subscriber Plan / Payer ( fective 2012-Present) Name:Lena Driver Member ID:[id number] Relation to Subscriber:Self Name:Lena Driver Subscriber ID:[id number] Payer ID:[id number] Group ID:Not on file Type:Medicare Address: [employer] [address] [employer] MEDICARE SUPPLEMENT MEDICARE PART A & B [employer] MEDICARE SUPPLEMENT MEDICARE PART A & B [employer] MED[employer] SUPPLEMENT MEDICARE PART A & B [facility] MEDICARE SUPPLEMENT MEDICARE PART A & B [facility] MEDICARE SUPPLEMENT MEDICARE PART A & B [facility] EXTENSION MEDICARE SUPPLEMENT MEDICARE PART A & B [facility] EX[employer] MEDICARE SUPPLEMENT Care Teams Citrus Picker Relationship Specialty Start Date End Date Lu Laws MD [address] [place] [address] PCP - General 12/10/16 Lu Laws MD [address] [place] [address] Historical LMR Provider 12/09/16 Additional Source Comments The information contained in this document represents components of the legal health record. It is not the complete legal health record.[facility]
== END 2024-11-09 10:31 | disposition home or self-care (01) ==
LOC: HO.HMCH 09:30
PROVIDERS: PCP Internal Medicine; Visit Provider Internal Medicine
DX: I12.9 Hypertensive chronic kidney disease with stage 1 through stage 4 chronic kidney disease, or unspecified chronic kidney disease (principal); N18.31 Chronic kidney disease, stage 3a; C50.411 Malignant neoplasm of upper-outer quadrant of right female breast; E78.00 Pure hypercholesterolemia, unspecified; R73.9 Hyperglycemia, unspecified; E87.6 Hypokalemia; Z17.0 Estrogen receptor positive status [ER+]; R05.9 Cough, unspecified

== ENCOUNTER → 2024-11-09 10:53 | Outpatient (BNV) | payer MEDICARE, OTHER, SELFPAY | PROVIDERS: PCP Internal Medicine; Visit Provider Radiology Diagnostic Radiology | DX: R05.9 Cough, unspecified (principal) | CPT/HCPCS: 71046 ==

== ENCOUNTER 2025-01-16 07:34 | Outpatient (REF) | payer MEDICARE, OTHER, SELFPAY ==
--- OUTSIDE RECORDS SUMMARY | 2025-01-16 07:37 | XMS_ITS | Encounter Summary ---
Author Organization [facility] Address [address] [place] [address] [place] [address] Phone Care Team Providers Care Harp Repairer Name Role Phone Precious Arzate MD Unavailable [phone] Lu Laws MD Unavailable Lena Malin RDCS Unavailable [email or web address] Lu Laws MD Primary Care Provider [phone] Encounter Details Date Type Department Care Team (Late st Contact Info) Description 11/13/2019 Procedure Pass [facility], [address] [address] Social History Tobacco Use Types Packs/Day Years [...] on filedocumented in this encounter Care Teams Harp Repairer Relationship Specialty Start Date End Date Lu Laws MD 4 [place] [address] PCP - General 12/10/16 Precious Arzate MD [address] [place] [address], [facility] [address] [place] [address] [email or web address] Historical LMR Provider 12/09/16 03/01/21 Lu Laws MD 4 [place] [address] Historical LMR Provider 12/09/16 Lena Malin RDCS [email or web address] Historical LMR Provider 12/09/16 03/01/21 documented as of this encounter Additional Source Comments The information contained in this document represents components of the legal health record. It is not the complete legal health record.[facility]
--- OUTSIDE RECORDS SUMMARY | 2025-01-16 07:37 | XMS_ITS | Encounter Summary ---
Author Organization [facility] Address [address] [place] [address] [place] [address] Phone Care Team Providers Care Cylinder Press Feeder Name Role Phone Precious Arzate MD Unavailable [phone] Lu Laws MD Unavailable Lena Malin RDCS Unavailable [email or web address] Lu Laws MD Primary Care Provider Encounter Details Date Type Department Care Team (Late st Contact Info) Description 07/28/2018 Ancillary Orders Virtual Department 30 [place] [address] Lu Laws MD 4 [place] [address] Visit for screening mammogram Social History Tobacco [...] mammogram documented in this encounter Care Teams Cylinder Press Feeder Relationship Specialty Start Date End Date Lu Laws MD [address] [place] [address] PCP - General 12/10/16 Precious Arzate MD [address] [place] [address], [address] [address] Historical LMR Provider 12/09/16 03/01/21 Lu Laws MD NPI: [id number] [place] [address] Historical LMR Provider 12/09/16 Lena Malin RDCS [email or web address] Historical LMR Provider 12/09/16 03/01/21 documented as of this encounter Additional Source Comments The information contained in this document represents components of the legal health record. It is not the complete legal health record.[facility]
--- OUTSIDE RECORDS SUMMARY | 2025-01-16 07:37 | XMS_ITS | Encounter Summary ---
Author Organization [facility] Address [address] [place] [address] [place] [address] Phone Care Team Providers Care Commercial Makeup Artist Name Role Phone Precious Arzate MD Unavailable [phone] Lu Laws MD Unavailable Lena Malin RDCS Unavailable [email or web address] Lu Laws MD Primary Care Provider [phone] Encounter Details Date Type Department Care Team (Late st Contact Info) Description 10/29/2020 Procedure Pass [facility], [address] [address] Social History Tobacco Use Types Packs/Day Years [...] on filedocumented in this encounter Care Teams Commercial Makeup Artist Relationship Specialty Start Date End Date Lu Laws MD 4 [place] [address] PCP - General 12/10/16 Precious Arzate MD 22 [facility], [address] [place] [address] Historical LMR Provider 12/09/16 03/01/21 Lu Laws MD 4 [place] [address] Historical LMR Provider 12/09/16 Lena Malin, PABLO [email or web address] Historical LMR Provider 12/09/16 03/01/21 documented as of this encounter Additional Source Comments The information contained in this document represents components of the legal health record. It is not the complete legal health record.[facility]
--- OUTSIDE RECORDS SUMMARY | 2025-01-16 07:37 | XMS_ITS | Encounter Summary ---
Author Organization [facility] Address [address] [place] [address] Phone Care Team Providers Care Business Controller Name Role Phone Precious Arzate MD Unavailable [phone] Lu Laws MD Unavailable Lena Malin RDCS Unavailable [email or web address] Lu Laws MD Primary Care Provider [phone] Encounter Details Date Type Department Care Team (Late st Contact Info) Description 08/03/2018 Transcribe Orders Virtual Department 30 [place], [place] [id number] Lu Laws MD 4 [place] [address] Follow-up exam, 3-6 months since previous exam [...] examination documented in this encounter Care Teams Business Controller Relationship Specialty Start Date End Date Lu Laws MD [address] [place] [address] PCP - General 12/10/16 Precious Arzate MD [address] [place] [address], [address] [place] [address] Historical LMR Provider 12/09/16 03/01/21 Lu Laws MD [address] [place] [address] Historical LMR Provider 12/09/16 Lena Malin RDCS Historical LMR Provider 12/09/16 03/01/21 documented as of this encounter Additional Source Comments The information contained in this document represents components of the legal health record. It is not the complete legal health record.[facility]
--- OUTSIDE RECORDS SUMMARY | 2025-01-16 07:37 | XMS_ITS | Encounter Summary ---
Author Organization [facility] Address [address] [place] [address] Phone Care Team Providers Care Director Of Special Education Name Role Phone Lu Laws MD Unavailable Lu Laws MD Primary Care Provider [phone] Encounter Details Date Type Department Care Team (Late st Contact Info) Description 03/31/2022 Transcribe Orders Virtual Department 30 [place] [address] Lu Laws MD 4 [place] [address] Abnormal mammogram of right breast (Primary Dx) [...] corresponding finding in the area of interest. [facility] Eusebia ANDRADE IMG US BREAST Final [...] breast documented in this encounter Care Teams Director Of Special Education Relationship Specialty Start Date End Date Lu Laws MD [address] [place] [address] PCP - General 12/10/16 Lu Laws MD [address] [place] [address] Historical LMR Provider 12/09/16 documented as of this encounter Additional Source Comments The information contained in this document represents components of the legal health record. It is not the complete legal health record.[facility]
--- OUTSIDE RECORDS SUMMARY | 2025-01-16 07:37 | XMS_ITS | Clinical Summary ---
Author Organization [facility] Address [address] [address] Phone Care Team Providers Care Riding Coach Name Role Phone Lu Laws MD Unavailable Lu Laws MD Primary Care Provider [phone] Allergies Active Allergy Reactions Criticality Noted Date [...] file Insurance MEDICARE PART A & B [employer] MED[employer] SUPPLEMENT MEDICARE PART A & B [employer] SUPPLEMENT MEDICARE PART A & B Member Subscriber Plan / Payer ( fective 2012-Present) Name:Lena Driver Member ID:[id number] Relation to Subscriber:Self Name:Lena Driver Subscriber ID:[id number] Payer ID:[id number] Group ID:Not on file Type:Medicare Address: [place] [address] [employer] MEDICARE SUPPLEMENT MEDICARE PART A & B [employer] MEDICARE SUPPLEMENT MEDICARE PART A & B [employer] SUPPLEMENT MEDICARE PART A & B [facility] MEDICARE SUPPLEMENT MEDICARE PART A & B [facility] MEDICARE SUPPLEMENT MEDICARE PART A & B [facility] EXTENSION MEDICARE SUPPLEMENT MEDICARE PART A & B [facility] EXTENSION MEDICARE SUPPLEMENT Care Teams Riding Coach Relationship Specialty Start Date End Date Lu Laws MD [address] [place] [address] PCP - General 12/10/16 Lu Laws MD 4 [place] [address] Historical LMR Provider 12/09/16 Additional Source Comments The information contained in this document represents components of the legal health record. It is not the complete legal health record.[facility]
--- OUTSIDE RECORDS SUMMARY | 2025-01-16 07:37 | XMS_ITS | Encounter Summary ---
Author Organization [facility] Address [address] [place] [address] [place] [address] Phone Care Team Providers Care Industrial Maintenance Mechanic Name Role Phone Precious Arzate MD Unavailable [phone] Lu Laws MD Unavailable Lena Malin RDCS Unavailable [email or web address] Lu Laws MD Primary Care Provider Encounter Details Date Type Department Care Team (Late st Contact Info) Description 01/06/2021 Procedure Pass [facility], Ct Scan - [address] [address] Social History Tobacco Use Types Packs/Day Years [...] on filedocumented in this encounter Care Teams Industrial Maintenance Mechanic Relationship Specialty Start Date End Date Lu Laws MD 4 [place] [address] PCP - General 12/10/16 Precious Arzate MD 22 [facility], [address] [place] [address] [email or web address] Historical LMR Provider 12/09/16 03/01/21 Lu Laws MD 4 [place] [address] Historical LMR Provider 12/09/16 Lena Malin, PABLO [email or web address] Historical LMR Provider 12/09/16 03/01/21 documented as of this encounter Additional Source Comments The information contained in this document represents components of the legal health record. It is not the complete legal health record.[facility]
--- OUTSIDE RECORDS SUMMARY | 2025-01-16 07:37 | XMS_ITS | Encounter Summary ---
Author Organization [facility] Address [address] [place] [address] Phone Care Team Providers Care Landscape Manager Name Role Phone Lu Laws MD Unavailable Lu Laws MD Primary Care Provider [phone] Encounter Details Date Type Department Care Team (Latest Contact Info) Description 09/23/2023 Transcribe Orders Virtual Department 30 [place] [address] Self-Referred, Patient Breast screening (Primary Dx) Social [...] unspecified documented in this encounter Care Teams Landscape Manager Relationship Specialty Start Date End Date Lu Laws MD 4 [place] [address] PCP - General 12/10/16 Lu Laws MD 4 [place] [address] Historical LMR Provider 12/09/16 documented as of this encounter Additional Source Comments The information contained in this document represents components of the legal health record. It is not the complete legal health record.[facility]
--- OUTSIDE RECORDS SUMMARY | 2025-01-16 07:37 | XMS_ITS | Encounter Summary ---
Author Organization [facility] Address [address] [place] [address] [place] [address] Phone Care Team Providers Care Helpdesk Specialist Name Role Phone Precious Arzate MD Unavailable [phone] Lu Laws MD Unavailable Lena Malin RDCS Unavailable [email or web address] Lu Laws MD Primary Care Provider Encounter Details Date Type Department Care Team (Late st Contact Info) Description 12/12/2016 Ancillary Orders [facility], X-Ray - [address] [address] Lu Laws MD [address] [place] [address] Visit for screening mammogram Social History Tobacco [...] lowers the sensitivity of mammography. POS - [id number] Narrative 01/13/2017 4:36 PM EST FINDINGS: Bilateral [...] whichlowers the sensitivity of mammography. POS - [id number] Lu Laws MD IMG MG EXAMS Final Result documented in this encounter Visit Diagnoses Diagnosis Visit for screening mammogram Visit for screening mammogram documented in this encounter Care Teams Helpdesk Specialist Relationship Specialty Start Date End Date Lu Laws MD 4 [place] [address] PCP - General 12/10/16 Precious Arzate MD [address] [place] [address], [address] [place] [address] [email or web address] Historical LMR Provider 12/09/16 03/01/21 Lu Laws MD [address] [place] [address] Historical LMR Provider 12/09/16 Lena Malin, PABLO [email or web address] Historical LMR Provider 12/09/16 03/01/21 documented as of this encounter Additional Source Comments The information contained in this document represents components of the legal health record. It is not the complete legal health record.[facility]
--- OUTSIDE RECORDS SUMMARY | 2025-01-16 07:37 | XMS_ITS | Encounter Summary ---
Author Organization [facility] Address [address] [facility] [address] [place] [address] Phone Care Team Providers Care Supervisor Assembly Department Name Role Phone Lu Laws MD Unavailable Lu Laws MD Primary Care Provider [phone] Encounter Details Date Type Department Care Team (Late st Contact Info) Description 03/31/2022 Procedure Pass [address] [address] Social History Tobacco Use Types Packs/Day Years [...] on filedocumented in this encounter Care Teams Supervisor Assembly Department Relationship Specialty Start Date End Date Lu Laws MD [address] [place] [address] PCP - General 12/10/16 Lu Laws MD [address] [place] [address] Historical LMR Provider 12/09/16 documented as of this encounter Additional Source Comments The information contained in this document represents components of the legal health record. It is not the complete legal health record.[facility]
--- OUTSIDE RECORDS SUMMARY | 2025-01-16 07:37 | XMS_ITS | Encounter Summary ---
Author Organization [facility] Address [address] [facility] [address] [place] [address] Phone Care Team Providers Care Traffic Administrator Name Role Phone Lu Laws MD Unavailable Lu Laws MD Primary Care Provider [phone] Encounter Details Date Type Department Care Team (Late st Contact Info) Description 01/08/2022 Procedure Pass [address] [address] Social History Tobacco Use Types Packs/Day Years [...] on filedocumented in this encounter Care Teams Traffic Administrator Relationship Specialty Start Date End Date Lu Laws MD [address] [place] [address] PCP - General 12/10/16 Lu Laws MD [address] [place] [address] Historical LMR Provider 12/09/16 documented as of this encounter Additional Source Comments The information contained in this document represents components of the legal health record. It is not the complete legal health record.[facility]
--- OUTSIDE RECORDS SUMMARY | 2025-01-16 07:37 | XMS_ITS | Encounter Summary ---
Author Organization [facility] Address [address] [place] [address] [place] [address] Phone Care Team Providers Care Integration Solution Architect Name Role Phone Precious Arzate MD Unavailable [phone] Lu Laws MD Unavailable Lena Malin RDCS Unavailable [email or web address] Lu Laws MD Primary Care Provider [phone] Encounter Details Date Type Department Care Team (Late st Contact Info) Description 10/29/2020 Ancillary Orders Virtual Department 30 [place] [address] Lu Laws MD 4 [place] [address] Breast screening Social History Tobacco Use Types [...] unspecified documented in this encounter Care Teams Integration Solution Architect Relationship Specialty Start Date End Date Lu Laws MD [address] [place] [address] PCP - General 12/10/16 Precious Arzate MD [address] [place] [address] Historical LMR Provider 12/09/16 03/01/21 Lu Laws MD [address] [place] [address] Historical LMR Provider 12/09/16 Lena Malin RDCS [email or web address] Historical LMR Provider 12/09/16 03/01/21 documented as of this encounter Additional Source Comments The information contained in this document represents components of the legal health record. It is not the complete legal health record.[facility]
--- OUTSIDE RECORDS SUMMARY | 2025-01-16 07:37 | XMS_ITS | Encounter Summary ---
Author Organization [facility] Address [address] [place] [address] Phone Care Team Providers Care Electro Optics Engineer Name Role Phone Precious Arzate MD Unavailable [phone] Lu Laws MD Unavailable Lena Malin RDCS Unavailable [email or web address] Lu Laws MD Primary Care Provider [phone] Encounter Details Date Type Department Care Team (Late st Contact Info) Description 11/13/2019 Ancillary Orders Virtual Department 30 [place] [address] Lu Laws MD 4 [place] [address] Abnormal mammogram Social History Tobacco Use Types [...] unspecified documented in this encounter Care Teams Electro Optics Engineer Relationship Specialty Start Date End Date Lu Laws MD [address] [place] [address] PCP - General 12/10/16 Precious Arzate MD [address] [place] [address], [address] [place] [address] Historical LMR Provider 12/09/16 03/01/21 Lu Laws MD [address] [place] [address] Historical LMR Provider 12/09/16 Lena Malin, RDCS [email or web address] Historical LMR Provider 12/09/16 03/01/21 documented as of this encounter Additional Source Comments The information contained in this document represents components of the legal health record. It is not the complete legal health record.[facility]
--- OUTSIDE RECORDS SUMMARY | 2025-01-16 07:37 | XMS_ITS | Encounter Summary ---
Author Organization [facility] Address [address] [place] [address] [place] [address] Phone Care Team Providers Care Cut Press Operator Name Role Phone Precious Arzate MD Unavailable [phone] Lu Laws MD Unavailable Lena Malin RDCS Unavailable [email or web address] Lu Laws MD Primary Care Provider [phone] Encounter Details Date Type Department Care Team (Late st Contact Info) Description 01/20/2018 Ancillary Orders Virtual Department 30 [place] [address] Lu Laws MD 4 [place] [address] Abnormal mammogram Social History Tobacco Use Types [...] 6 Months Short interval follow-up POS - [id number] Edited by: Michell Palmer on 01/24/2018 11:05 [...] 6 Months Short interval follow-up POS - [id number] Edited by: Michell Palmer on 01/24/2018 11:05 AM Lu Laws MD [facility] [place] BREAST Final Result * BI MAMMOGRAM [...] 6 Months Short interval follow-up POS - [id number] Edited by: Michell Palmer on 01/24/2018 11:05 [...] 6 Months Short interval follow-up POS - [id number] Edited by: Michell Palmer on 01/24/2018 11:05 AM Lu Laws MD IMG MG EXAMS Final Result documented in this encounter Visit Diagnoses Diagnosis Abnormal mammogram Abnormal mammogram, unspecified Abnormal mammogram Abnormal mammogram, unspecified Abnormal mammogram Abnormal mammogram, unspecified documented in this encounter Care Teams Cut Press Operator Relationship Specialty Start Date End Date Lu Laws MD 4 [place] [address] PCP - General 12/10/16 Precious Arzate MD [address] [place] [address], [facility] [address] [place] [address] [email or web address] Historical LMR Provider 12/09/16 03/01/21 Lu Laws MD 4 [place] [address] Historical LMR Provider 12/09/16 Lena Malin RDCS Historical LMR Provider 12/09/16 03/01/21 documented as of this encounter Additional Source Comments The information contained in this document represents components of the legal health record. It is not the complete legal health record.[facility]
--- OUTSIDE RECORDS SUMMARY | 2025-01-16 07:38 | XMS_ITS | Encounter Summary ---
Author Organization [facility] Address [address] [place] [address] Phone Care Team Providers Care Resource Manager Name Role Phone Precious Arzate MD Unavailable [phone] Lu Laws MD Unavailable Lena Malin RD Unavailable [email or web address] Lu Laws MD Primary Care Provider [phone] Encounter Details Date Type Department Care Team (Late st Contact Info) Description 01/20/2021 Ancillary Orders [facility],Outside Imaging 30 [place] [address] System, Provider Not In, PhD [address] [address] Social History Tobacco Use Types Packs/Day Years [...] on filedocumented in this encounter Care Teams Resource Manager Relationship Specialty Start Date End Date Lu Laws MD 4 [place] [address] PCP - General 12/10/16 Precious Arzate MD [address] [place] [address], [facility] [address] [place] [address] [email or web address] Historical LMR Provider 12/09/16 03/01/21 Lu Laws MD 4 [place] [address] Historical LMR Provider 12/09/16 Lena Malin, DONICS Historical LMR Provider 12/09/16 03/01/21 documented as of this encounter Additional Source Comments The information contained in this document represents components of the legal health record. It is not the complete legal health record.[facility]
--- OUTSIDE RECORDS SUMMARY | 2025-01-16 07:38 | XMS_ITS | Encounter Summary ---
Author Organization [facility] Address [address] [place] [address] Phone Care Team Providers Care Cab Driver Name Role Phone Precious Arzate MD Unavailable [phone] Lu Laws MD Unavailable Lena Malin RDCS Unavailable [email or web address] Lu Laws MD Primary Care Provider Encounter Details Date Type Department Care Team (Late st Contact Info) Description 10/27/2017 Ancillary Orders Virtual Department 30 [place] [address] Lu Laws MD 4 [place] [address] Breast screening Social History Tobacco Use Types [...] RECOMMENDATION DATE: Annual Mammography Screening POS - [id number] Narrative 01/19/2018 9:22 AM EST BI MAMMOGRAM SCREENING WITH TOMOSYNTHESIS WITH CAD (BILATERAL) HISTORY: Screening. COMPARISON: Prior studies dating back to 2011, most recently 01/13/2017. TECHNIQUE: Digital breast tomosynthesis was performed in CC and MLO projections. Reconstructed 2-D C-views generated from the tomosynthesis images. Images interpreted in conjunction with R-2 Image Plumbing Instructor computer-aided detection (CAD). FINDINGS: BREAST DENSITY: The [...] RECOMMENDATION DATE: Annual Mammography Screening POS - [id number] Lu Laws MD IMG MG EXAMS Final Result documented in this encounter Visit Diagnoses Diagnosis Breast screening Breast screening, unspecified Breast screening Breast screening, unspecified documented in this encounter Care Teams Cab Driver Relationship Specialty Start Date End Date Lu Laws MD [address] [place] [address] PCP - General 12/10/16 Precious Arzate MD [address] [place] [address], [facility] [address] [place] [address] Historical LMR Provider 12/09/16 03/01/21 Lu Laws MD [address] [place] [address] Historical LMR Provider 12/09/16 Lena Malin, PABLO Historical LMR Provider 12/09/16 03/01/21 documented as of this encounter Additional Source Comments The information contained in this document represents components of the legal health record. It is not the complete legal health record.[facility]
--- OUTSIDE RECORDS SUMMARY | 2025-01-16 07:38 | XMS_ITS | Encounter Summary ---
Author Organization [facility] Address [address] [place] [id number] Phone Care Team Providers Care Community Center Director Name Role Phone Precious Arzate MD Unavailable [phone] Lu Laws MD Unavailable Lena Malin RD Unavailable [email or web address] Lu Laws MD Primary Care Provider [phone] Reason for Referral * Physical Therapy (Routine) - Closed Specialty Diagnoses / Procedures Referred By Contgonzalo t Referred To Contact Physical Therapy Diagnoses Encounter for rehabilitation [facility] [address] [place] [address] [place] [address] Phone: tel: fax: [address] [address] Phone: tel: Referral ID Status Reason Start Date Expiration Date Visits Re quested Visits Authorized [id number] Closed 08/31/2017 02/21/2018 99 99 Encounter Details Date Type Department Care Team (Latest Contact Info) Description 08/31/2017 Transcribe Orders [facility] [address] [place] [address] Daria Ramírez MD [address] [place] [id number] Encounter for rehabilitation (Primary Dx) Social History [...] Diagnoses Orde r Schedule Ambulatory referral to [facility] Physical Therapy Outpatient Referral Routine Encounter for rehabilitation Ordered: 08/31/2017 documented as of this encounter Visit Diagnoses Diagnosis Encounter for rehabilitation- Primary documented in this encounter Care Teams Community Center Director Relationship Specialty Start Date End Date Lu Laws MD [address] [place] [address] PCP - General 12/10/16 Precious Arzate MD [address] [place] [address] [address] [place] [address] Historical LMR Provider 12/09/16 03/01/21 Lu Laws MD [address] [place] [address] Historical LMR Provider 12/09/16 Lena Malin RDCS Historical LMR Provider 12/09/16 03/01/21 documented as of this encounter Additional Source Comments The information contained in this document represents components of the legal health record. It is not the complete legal health record.[facility]
--- OUTSIDE RECORDS SUMMARY | 2025-01-16 07:38 | XMS_ITS | Encounter Summary ---
Author Organization [facility] Address [address] [place] [address] [place] [address] Phone Care Team Providers Care Teleprinter Installer Name Role Phone Precious Arzate MD Unavailable [phone] Lu Laws MD Unavailable Lena Malin RDCS Unavailable [email or web address] Lu Laws MD Primary Care Provider [phone] Encounter Details Date Type Department Care Team (Late st Contact Info) Description 01/06/2021 Procedure Pass [facility], Ct Scan - [address] [address] Social History Tobacco Use Types Packs/Day Years [...] on filedocumented in this encounter Care Teams Teleprinter Installer Relationship Specialty Start Date End Date Lu Laws MD [address] [place] [address] PCP - General 12/10/16 Precious Arzate MD [address] [facility], [address] [place] [address] Historical LMR Provider 12/09/16 03/01/21 Lu Laws MD [address] [place] [address] Historical LMR Provider 12/09/16 Lena Malin, PABLO [email or web address] Historical LMR Provider 12/09/16 03/01/21 documented as of this encounter Additional Source Comments The information contained in this document represents components of the legal health record. It is not the complete legal health record.[facility]
--- NOTE | 2025-01-16 08:06 | PFT_ITS ---
Flows: FEV1: 104 % of predicted at 1.76 L FVC: 97 % of predicted at 2.11 L FEV1/FVC: 83 % Bronchodilator response: Absent Volumes: Total lung capacity: 110 % of predicted at 4.51 L Residual volume: 118 % of predicted at 2.11 L Slow vital capacity: 106 % of predicted at 2.40 L Expiratory reserve volume: 9 % of predicted at 0.05 L Diffusion capacity: Normal Impression: No obstructive or restrictive ventilatory defect. No bronchodilator response. Essentially normal pulmonary function test. MTDD
[2025-01-16 08:49] VITALS: PULSE 91; O2SAT 100
== END 2025-01-16 07:35 | disposition home or self-care (01) ==
LOC: HO.RESP 07:34
PROVIDERS: PCP Internal Medicine; Visit Provider Internal Medicine
DX: J44.9 Chronic obstructive pulmonary disease, unspecified (principal); R05.9 Cough, unspecified
CPT/HCPCS: 94060; 94640; 94727; 94729

== ENCOUNTER → 2025-01-16 08:06 | Outpatient (BNV) | payer MEDICARE, OTHER, SELFPAY | PROVIDERS: PCP Internal Medicine; Visit Provider Internal Medicine Pulmonary Disease | DX: R05.9 Cough, unspecified (principal) | CPT/HCPCS: 94060; 94727; 94729 ==

== ENCOUNTER 2025-02-01 09:12 | Outpatient (REF) | payer MEDICARE, OTHER, SELFPAY ==
--- NOTE | ~2025-02-01 | MM_ITS ---
EXAMINATION: MM DIAGNOSTIC DIGITAL BREAST TOMOSYNTHESIS, BILATERAL CLINICAL INFORMATION: History of right breast cancer 2024 status post lumpectomy. The tag within the post lumpectomy specimen however the marker clip was not seen within the specimen were by pathology within the specimen. COMPARISON: Mammography: Comparison is made with relevant prior exams. TECHNIQUE: Digital breast mammography with tomosynthesis is performed in both the craniocaudal and mediolateral oblique views along with computer-aided detection (CAD). FINDINGS: There are scattered areas of fibroglandular density. Right: Post lumpectomy changes in the upper outer right breast with multiple postprocedural clips. The butterfly clip is not seen within the post lumpectomy bed. No suspicious calcifications masses or other abnormal findings. Left: There are no significant masses, abnormal calcifications, or other abnormalities. Results are provided to the patient at time of visit by the technologist. MM/MM tomosynthesis diagnostic BI IMPRESSION: Right: Post lumpectomy changes. Benign. Butterfly clip is not seen within the right breast post lumpectomy bed. Left: Negative. ASSESSMENT: BI-RADS Category 2: Benign RECOMMENDATION: 1 year F/U This patient's information was entered into a reminder system with a target due date for their next mammogram. Electronically signed by: Iliana Hardy DO 02/01/2025 10:45 AM [facility]
== END 2025-02-01 09:13 | disposition home or self-care (01) ==
LOC: HO.MAMMO 09:12
PROVIDERS: PCP Internal Medicine; Visit Provider Internal Medicine Medical Oncology
DX: Z85.3 Personal history of malignant neoplasm of breast (principal)
CPT/HCPCS: 77062; 77066

== ENCOUNTER → 2025-02-01 10:30 | Outpatient (BNV) | payer MEDICARE, OTHER, SELFPAY | PROVIDERS: PCP Internal Medicine; Visit Provider Internal Medicine | DX: Z85.3 Personal history of malignant neoplasm of breast (principal); Z90.11 Acquired absence of right breast and nipple | CPT/HCPCS: 77066; G0279 ==